=== PATIENT | female | born 1950 | race Caucasian/White ===

== ENCOUNTER 2020-08-28 10:22 | Emergency (ER) | payer OTHER, SELFPAY ==
--- NOTE | 2020-08-28 11:24 | ED.GENADULT ---
HPI - General Adult General Chief complaint: Upper Respiratory Infection Stated complaint: NOT FEELING WELL Time Seen by Provider: 08/28/20 11:25 Source: patient and RN notes reviewed Mode of arrival: ambulatory Limitations: no limitations History of Present Illness HPI narrative: 69-year-old female presents with complaints of upper respiratory infection symptoms, fever, sore throat, cough, intermittent dyspnea and headaches (not the worst of her life) for the 2 weeks. Recently completed antibiotics and Tylenol, last today at 08:00 without relief. History of Asthma. Dry cough without chest congestion. Rhinorrhea and nasal congestion. Exacerbating factors consist over exertion. No high fevers or sweats. No nausea, vomiting, and abdominal pain. Tolerating po intake well. Denies chest pain, coughing up blood, jaw pain, dental pain, facial pain, foreign body sensation, and rash. The patient reports she have not been diagnosed with COVID-19. The patient reports she received her COVID-19 vaccine on 08/13/2020 and illness increased. The patient reports she is not waiting for the results of a COVID-19 lab test. The patient reports she do not have weakness, myalgia, or fatigue. The patient reports she do not have any loss of smell or taste or diarrhea. Denies recent traveling. Denies concerns for COVID-19 or exposures been home with limited outdoor exposure except for essential household needs and return home. At this time, patient is not suspected of having COVID-19. Some parts of this dictation were generated by voice recognition software and may contain typographical and/or grammatical inaccuracies. Related Data Home Medications Medication Instructions Recorded Confirmed albuterol sulfate 2 puff INHALATION Q4H PRN 08/28/20 08/28/20 glipizide 10 mg PO DAILY 08/28/20 08/28/20 insulin glargine [Basaglar KwikPen 40 unit SUBCUT HS 08/28/20 08/28/20 U-100 Insulin] lurasidone [Latuda] 120 mg PO DAILY 08/28/20 08/28/20 simvastatin 20 mg PO DAILY 08/28/20 08/28/20 Allergies Allergy/AdvReac Type Severity Reaction Status Date / Time ampicillin Allergy Unknown Difficulty Verified 08/28/20 12:22 Breathing aspirin Allergy Unknown Difficulty Verified 08/28/20 12:22 Breathing codeine Allergy Unknown Difficulty Verified 08/28/20 12:22 Breathing Penicillins Allergy Unknown Difficulty Verified 08/28/20 12:22 Breathing Review of Systems Review of Systems: Narrative: CONSTITUTIONAL: Complains of tactile fever. Denies chills, sweats. EYES: Denies visual changes, redness, discharge. ENT: Complains of rhinorrhea, congestion, sore throat. Denies otalgia. CARDIOVASCULAR: Denies chest pain, palpitations, edema. RESPIRATORY: Denies wheezing. Complains of intermittent dyspnea, dry cough. GASTROINTESTINAL: Denies abdominal pain, nausea, vomiting, diarrhea. GENITOURINARY: Denies dysuria, hematuria, abnormal discharge. SKIN: Denies rash or itching. MUSCULOSKELETAL: Denies acute back pain, joint pain, myalgia. NEUROLOGIC: Denies numbness or focal weakness. PSYCHIATRIC: Denies anxiety or depression. Complains of intermittent WARNER. All systems reviewed & are unremarkable except as noted in HPI and below PMFSH Past Medical History Medical History (Updated 08/29/20 @ 00:00 by Carmen Wise) Arthritis Asthma Depression Diabetes Hypercholesteremia Kidney stones Surgical History Surgical History (Updated 09/01/20 @ 13:06 by ANNY Davis) History of cholecystectomy History of dilation and curettage History of knee surgery LT History of tonsillectomy History of tubal ligation Family History Family History Other Diabetes mellitus Family history of alcoholism Family history of arthritis Family history of cardiovascular disease Family history of gout Family history of mental disorder Social History Social History (Updated 09/01
[2020-08-28 11:28] VITALS: BP 136/78; PULSE 99; RESP 16; TEMP 36.4; O2SAT 99
== END 2020-08-28 12:05 | disposition home or self-care (01) ==
PROVIDERS: Emergency Provider Nurse Practitioner Family; PCP Family Medicine
DX: J02.9 Acute pharyngitis, unspecified (principal); Z20.822 Contact with and (suspected) exposure to COVID-19; M19.90 Unspecified osteoarthritis, unspecified site; F32.9 Major depressive disorder, single episode, unspecified; E11.9 Type 2 diabetes mellitus without complications; E78.00 Pure hypercholesterolemia, unspecified
CPT/HCPCS: 87081; 87426; 87804; 87880; 99213; C9803; G0463

== ENCOUNTER 2020-11-07 11:23 | Emergency (ER) | payer OTHER, SELFPAY ==
[2020-11-07 11:32] VITALS: BP 126/64; PULSE 107; RESP 16; TEMP 37; O2SAT 98
--- NOTE | 2020-11-07 12:06 | ED.GENADULT ---
HPI - General Adult General Chief complaint: Ear Stated complaint: Ear Pain Time Seen by Provider: 11/07/20 12:06 Source: patient and RN notes reviewed Mode of arrival: ambulatory Limitations: no limitations History of Present Illness HPI narrative: 70-year-old female presents with complaints of bilateral otalgia, upper respiratory infection symptoms, nasal congestion, and rhinorrhea for the past 14 days. Ramandeep reports decrease hearing, increase otalgia with opening mouth, and intermittent sore throat. OTC medications with some relief, last today 07:00. Denies drainage or tinnitus. Denies injury to ear. ?Rhinorrhea and nasal congestion. Denies coughing. ?No high fevers or chills. ?Denies nausea, vomiting, and dizziness. ?The patient reports she has not been diagnosed with COVID-19. The patient reports she is not waiting for the results of a COVID-19 lab test. The patient reports she does not have chills, weakness, or fatigue. ?The patient reports she does not have a new or worsening cough or shortness of breath. ?Denies chest pain. ?The patient reports she does not have any rhinorrhea, congestion, sore throat, loss of taste or smell, nausea, vomiting, abdominal pain, and diarrhea. ?Tolerating po intake well. ?Denies recent traveling. Denies concerns for COVID-19. ?At this time, the patient is not suspected of having COVID-19. Some parts of this dictation were generated by voice recognition software and may contain typographical and/or grammatical inaccuracies. Related Data Home Medications Medication Instructions Recorded Confirmed simvastatin 20 mg PO DAILY 08/28/20 11/07/20 albuterol 2 mcg INHALATION QID 11/07/20 11/07/20 glipizide [Glucotrol XL] 10 mg PO DAILY 11/07/20 11/07/20 insulin glargine [Basaglar KwikPen 40 unit SUBCUT DAILY 11/07/20 11/07/20 U-100 Insulin] lurasidone [Latuda] 120 mg PO DAILY 11/07/20 11/07/20 Allergies Allergy/AdvReac Type Severity Reaction Status Date / Time ampicillin Allergy Unknown Difficulty Verified 11/07/20 11:39 Breathing aspirin Allergy Unknown Difficulty Verified 11/07/20 11:39 Breathing codeine Allergy Unknown Difficulty Verified 11/07/20 11:39 Breathing Penicillins Allergy Unknown Difficulty Verified 11/07/20 11:39 Breathing Review of Systems Review of Systems: Narrative: CONSTITUTIONAL: Denies fever, chills, sweats. EYES: Denies visual changes, redness, discharge. ENT: Denies ear drainage. Complains of sore throat, bilateral otalgia, decrease hearing, facial pressure, rhinorrhea, congestion. CARDIOVASCULAR: Denies chest pain, palpitations, edema. RESPIRATORY: Denies dyspnea, wheezing, cough. GASTROINTESTINAL: Denies abdominal pain, nausea, vomiting, diarrhea. SKIN: Denies rash or itching. MUSCULOSKELETAL: Denies acute back pain, joint pain, or myalgia. NEUROLOGIC: Denies numbness or focal weakness. PSYCHIATRIC: Denies anxiety or depression. All systems reviewed & are unremarkable except as noted in HPI and below. [facility] Past Medical History Medical History Arthritis Asthma Depression Diabetes Hypercholesteremia Kidney stones Surgical History Surgical History History of cholecystectomy History of dilation and curettage History of knee surgery LT History of tonsillectomy History of tubal ligation Family History Family History Other Diabetes mellitus Family history of alcoholism Family history of arthritis Family history of cardiovascular disease Family history of gout Family history of mental disorder Social History Social History Smoking status: Never smoker Tobacco type: cigarettes Second hand tobacco smoke exposure: No Alcohol intake: never Substance use: never Substance use type: does not
== END 2020-11-07 12:40 | disposition home or self-care (01) ==
PROVIDERS: Emergency Provider Nurse Practitioner Family; PCP Family Medicine
DX: H66.002 Acute suppurative otitis media without spontaneous rupture of ear drum, left ear (principal); H61.22 Impacted cerumen, left ear; J01.10 Acute frontal sinusitis, unspecified; M19.90 Unspecified osteoarthritis, unspecified site; E11.9 Type 2 diabetes mellitus without complications; E78.00 Pure hypercholesterolemia, unspecified; F32.9 Major depressive disorder, single episode, unspecified
CPT/HCPCS: 69209; 99213; A9270; G0463

== ENCOUNTER 2021-04-11 09:55 | Outpatient (CLI) | payer OTHER, SELFPAY ==
--- NOTE | ~2021-04-11 | MM_ITS ---
EXAMINATION: MM screening manan BI w brett HISTORY: Screening TECHNIQUE: Craniocaudal and mediolateral oblique 3-D tomosynthesis images were obtained and synthetic 2-D images were generated. CAD analysis was submitted and interpreted. COMPARISON: Comparison to multiple prior studies sequentially, with oldest reviewed study dated 07/17. BREAST PARENCHYMAL COMPOSITION: There are scattered areas of fibroglandular density. FINDINGS: There is no evidence of suspicious mass, calcification, or architectural distortion to sugg est malignancy in either breast. There has been no suspicious interval change. IMPRESSION: 1. No mammographic evidence of malignancy. 2. Recommend routine screening mammography in one year. BI-RADS Category 1: Negative Reviewed, dictated and finalized at location A.
== END 2021-04-11 09:56 | disposition home or self-care (01) ==
LOC: ANHIMG 09:58
PROVIDERS: PCP Family Medicine; Visit Provider Family Medicine
DX: Z12.31 Encounter for screening mammogram for malignant neoplasm of breast (principal)
CPT/HCPCS: 77063; 77067

== ENCOUNTER 2022-01-06 08:20 | Emergency (ER) | payer OTHER, SELFPAY ==
[2022-01-06] VITALS (13 sets, daily range): BP systolic 101–158; BP diastolic 55–79; PULSE 66–85; RESP 15–20; TEMP 36.7–37.2; O2SAT 94–100
--- NOTE | ~2022-01-06 | XR_ITS ---
EXAMINATION: XR lumbar spine 2-3V DATE: 01/06/2022 12:06 INDICATION: Fall 4 months prior TECHNIQUE: Anteroposterior and lateral views of the lumbar spine, and cone-down lateral view of the l umbosacral junction were obtained. COMPARISON: 06/16/2009 FINDINGS: Transitional thoracolumbar and lumbosacral segments with hypoplastic riblets at T12 and with sacraliz ation of L5. Sacrum and bilateral sacroiliac joints are unremarkable. Normal bowel gas pattern. 3 mm anterolisthesis L4 on L5. Vertebral body heights are normal. Interval progression of now moderate dis c height loss at L4-L5. Mild disc height loss at L3-L4. Moderate to severe lower lumbar facet osteoar thritis. IMPRESSION: 1. Interval progression of moderate lower lumbar spondylosis. Reviewed, dictated and finalized at location A.
--- NOTE | ~2022-01-06 | XR_ITS ---
EXAMINATION: XR thoracic spine 3V DATE: 01/06/2022 12:05 INDICATION: Fall 4 months prior TECHNIQUE: One AP, lateral and lateral swimmer's views of the thoracic spine were obtained. COMPARISON: 09/12/2003 FINDINGS: Moderate thoracic kyphosis which has progressed since the prior study. Chronic mild anterior wedging at a couple mid thoracic vertebral bodies, likely T7 and T8. Multilevel mild to moderate midthoracic prominent disc height loss. There are bridging osteophytes throughout much of the thoracic spine cons istent with diffuse idiopathic skeletal hyperostosis (DISH). No acute fracture identified. Lungs are clear with no focal airspace opacities, pulmonary edema, pleural effusion or pneumothorax. Prominent costochondral calcifications. Mediastinal silhouette is normal accounting for AP technique. IMPRESSION: 1. Moderate thoracic kyphosis with chronic mild anterior wedging at T7 and T8. No acute osseous abnor mality. 2. Moderate thoracic spondylosis and multiple bridging osteophytes throughout much of the thoracic sp ine consistent with diffuse idiopathic skeletal hyperostosis (DISH) Reviewed, dictated and finalized at location A. IMPRESSION: 1. Moderate thoracic kyphosis with chronic mild anterior wedging at T7 and T8. No acute osseous abnormality. 2. Moderate thoracic spondylosis and multiple bridging osteophytes throughout m uch of the thoracic spine consistent with diffuse idiopathic skeletal hyperosto sis (DISH)
--- NOTE | ~2022-01-06 | XR_ITS ---
EXAMINATION: XR hip RT 2V w AP pelvis DATE: 01/06/2022 12:06 INDICATION: Fall. TECHNIQUE: An anteroposterior view of pelvis and 2 views of right hip were obtained. COMPARISON: None. FINDINGS: Bone alignment is normal. No fracture. There is mild osteoarthritis of the hips. IMPRESSION: 1. Mild osteoarthritis of the hips. Reviewed, dictated and finalized at location A.
--- NOTE | 2022-01-06 09:32 | PC.NURSE ---
Pt resting on stretcher. Awaiting orders or disposition.
--- NOTE | 2022-01-06 10:17 | ED.FALL ---
HPI - Fall General Chief Complaint: Fall Stated Complaint: Fall Time Seen by Provider: 01/06/22 08:37 Source: patient Mode of arrival: ambulatory Limitations: no limitations History of Present Illness HPI Narrative: 71 years old white female came to the emergency room by private car complaining of severe pain at the right hip and the lower back started 4 months ago after falling inside her bathtub. Patient did not see anybody at that time, did not see any medical providers over the last 4 months, the pain is getting worse. She denies patient denies bowel dysfunction, bladder dysfunction, altered sensation, focal weakness, or saddle numbness,. History of diabetes, hypertension, hyperlipidemia, depression, does not smoke or drink or uses drugs last time was seen by her family physician over 4 months ago. Patient brought to the emergency room by one of her friends Related Data Home Medications Medication Instructions Recorded Confirmed simvastatin 20 mg tablet 20 mg PO DAILY 08/28/20 11/07/20 albuterol 90 mcg/actuation aerosol 2 mcg inhalation QID 11/07/20 11/07/20 inhaler glipizide 10 mg tablet, extended 10 mg PO DAILY 11/07/20 11/07/20 release 24 hr (Glucotrol XL) insulin glargine 100 unit/mL (3 40 unit subcut DAILY 11/07/20 11/07/20 mL) subcutaneous pen (Basaglar KwikPen U-100 Insulin) lurasidone 120 mg tablet (Latuda) 120 mg PO DAILY 11/07/20 11/07/20 Allergies Allergy/AdvReac Type Severity Reaction Status Date / Time ampicillin Allergy Unknown Difficulty Verified 01/06/22 08:30 Breathing aspirin Allergy Unknown Difficulty Verified 01/06/22 08:30 Breathing codeine Allergy Unknown Difficulty Verified 01/06/22 08:30 Breathing Penicillins Allergy Unknown Difficulty Verified 01/06/22 08:30 Breathing Review of Systems Review of Systems: All systems reviewed & are unremarkable except as noted in HPI and below PMFSH Past Medical History Medical History Arthritis Asthma Depression Diabetes Hypercholesteremia Kidney stones Surgical History Surgical History History of cholecystectomy History of dilation and curettage History of knee surgery LT History of tonsillectomy History of tubal ligation Family History Family History Other Diabetes mellitus Family history of alcoholism Family history of arthritis Family history of cardiovascular disease Family history of gout Family history of mental disorder Social History Social History Smoking status: Never smoker Tobacco type: cigarettes Second hand tobacco smoke exposure: No Alcohol intake: never Substance use: never Substance use type: does not use Additional occupation/education comments: disable Gender identity (if verbalized by the patient): Female Sexual Orientation (if Verbalized by the Patient): Straight or Heterosexual Exam Narrative: General appearance: Well-developed, well-nourished Skin: Normal color Head: Normocephalic, nontraumatic Eyes: Clear conjunctiva ENT: Oropharynx normal, ears normal, nose normal Neck: Supple, nontender Chest and respiratory: Airway patent, no respiratory distress, no accessory muscle use Heart: Regular rate/rhythm Abdomen: Soft, nontender, no organomegaly, quiet bowel sounds Vascular: Normal peripheral pulses, normal capillary refill. Musculoskeletal: Severe pain midline lumbar area, limited range of motion of the right hip. No bruises, no swelling, no deformity Neurologic: Alert and oriented ?3, ICE SKATING INSTRUCTOR is normal as tested, no gross motor deficit
[2022-01-06] MEDS: HYDROmorphone HCL INJ (*CRX) 1 MG/ML SYR 0.5 MG IV PUSH (10:30)
[2022-01-06] MEDS: ONDANSETRON INJ 4 MG/2 ML VIAL IV PUSH (10:31)
== END 2022-01-06 13:36 | disposition home or self-care (01) ==
PROVIDERS: Emergency Provider Emergency Medicine; PCP Family Medicine
DX: M16.0 Bilateral primary osteoarthritis of hip (principal); M54.50 Low back pain, unspecified; G89.29 Other chronic pain; J45.909 Unspecified asthma, uncomplicated; E11.9 Type 2 diabetes mellitus without complications; E78.00 Pure hypercholesterolemia, unspecified; M19.90 Unspecified osteoarthritis, unspecified site; F32.A Depression, unspecified; Z87.442 Personal history of urinary calculi; Z79.4 Long term (current) use of insulin; M47.814 Spondylosis without myelopathy or radiculopathy, thoracic region; M47.816 Spondylosis without myelopathy or radiculopathy, lumbar region
CPT/HCPCS: 72072; 72100; 73502; 96374; 96375; 99284; J1170; J2405

== ENCOUNTER 2022-06-15 19:30 | Emergency (ER) | payer OTHER, SELFPAY ==
[2022-06-15] VITALS (26 sets, daily range): BP systolic 98–147; BP diastolic 32–86; PULSE 65–98; RESP 13–33; TEMP 37.2; O2SAT 96–100
--- NOTE | ~2022-06-15 | XR_ITS ---
EXAMINATION: XR chest 2V Exam Date/Time: 06/15/2022 20:20 [employer] [employer] HISTORY: cp MIDSTERNAL, SOB, HX ASTHMA, COUGH, HX DIABETES Comparison: 07/01/2016. RESULT: Lines, tubes, and devices: None. Lungs and pleura: Senescent and possible mild emphysematous change, otherwise clear. Cardiomediastinal silhouette: Stable. Other: No acute osseous or upper abdominal finding. IMPRESSION: No acute cardiopulmonary process. Reviewed, dictated and finalized at location K. [facility] [employer]
--- NOTE | 2022-06-15 19:33 | ECG_ITS ---
Measurements Intervals [place] Rate: 72 P: 30 MS: 118 QRS: 50 QRSD: 129 T: 52 QT: 414 QTc: 456 Interpretive Statements SINUS RHYTHM WITH SHORT MS INTERVAL LEFT BUNDLE BRANCH BLOCK BASELINE WANDER- V3 ABNORMAL ECG NO PREVIOUS ECG AVAILABLE FOR COMPARISON Electronically Signed On 06-15-2022 20:17:02 [employer]OR[employer]ED [employer] by Phoenix Vivas D.O.
[2022-06-15 19:47] LABS: Basophils Absolute Auto 0.1 K/mm3 (0.0-0.1); Basophils Percent Auto 0.5 % (0.2-1.2); Eosinophils Absolute Auto 0.4 K/mm3 (0-0.3); Eosinophils Percent Auto 3.8 % (0-4.4); Hematocrit 41.8 % (37.0-47.0); Hemoglobin 13.9 g/dL (12.0-15.0); Immature Granulocyte Absolute 0.03 K/mm3 (0.00-0.031); Immature Granulocyte Percent A 0.3 % (0-0.5); Lymphocytes Absolute Auto 3.29 K/mm3 (0.9-3.2); Lymphocytes Percent Auto 32.2 % (18.3-44.2); Mean Corpuscular HGB Conc 33.3 g/dl (32-36); Mean Corpuscular Hemoglobin 33.7 pg (26-34); Mean Corpuscular Volume 101.5 fl (80-100); Mean Platelet Volume 9.1 fl (7.4-10.4); Monocytes Absolute Auto 0.8 K/mm3 (0.1-0.6); Monocytes Percent Auto 7.3 % (2.6-8.5); Neutrophils Absolute Auto 5.7 K/mm3 (1.3-6.7); Neutrophils Percent Auto 55.9 % (45.5-73.1); Platelet Count Result 273 k/mm3 (150-375); Red Blood Count 4.12 M/mm3 (4.2-5.4); Red Cell Distribution Width 13.6 % (11.5-14.5); White Blood Count 10.2 K/mm3 (4.5-10.0)
[2022-06-15 19:58] LABS: Alanine Aminotransferase 24 U/L (6-35); Albumin Level 4.3 g/dL (3.5-5.1); Alkaline Phosphatase 124 U/L (38-126); Anion Gap 6 mmol/L (8-16); Aspartate Amino Transferase 29 U/L (14-36); Bilirubin,Total 0.3 mg/dL (0.2-1.3); Blood Urea Nitrogen 23 mg/dL (7-17); Calcium 8.9 mg/dL (8.4-10.2); Carbon Dioxide 30 mmol/L (22-30); Chloride 101 mmol/L (98-107); Estimated Glomerular Filt Rate > 60; Glucose 170 mg/dL (65-110); INR 0.9; Lipase 46 U/L (23-300); Partial Thromboplastin Time 26.6 SECONDS (22.3-36.8); Potassium 4.3 mmol/L (3.4-5.0); Prothrombin Time 12.1 Seconds (11.1-14.7); Sodium 137 mmol/L (137-145)
[2022-06-15 20:09] LABS: Troponin I < 0.012 ng/mL (0.000-0.034)
[2022-06-15 20:22] LABS: Influenza A QL RT-PCR Negative (Negative); Influenza B QL RT-PCR Negative (Negative); RSV RNA, RT-PCR Negative (Negative); SARS-CoV-2 RNA PCR Negative
--- NOTE | 2022-06-15 20:51 | ED.URI ---
HPI - URI/Sore Throat General Chief Complaint: Chest Pain Stated Complaint: shortness of breath Time Seen by Provider: 06/15/22 20:39 History of Present Illness HPI Narrative: This is a 71-year-old female with past medical history of asthma and diabetes, who presents to the emergency department complaining of upper respiratory congestion, sore throat, wheezing and sore like chest pain. She states her symptoms began yesterday with a mild asthma exacerbation that improved with albuterol. At the time she had some coughing associated with some sore like chest pain. Today she noted nasal congestion, sore throat and mild swelling at the neck with worsening cough and similar chest soreness (rated 4/10 at maximum) without radiation. Related Data Home Medications Medication Instructions Recorded Confirmed simvastatin 20 mg tablet 20 mg PO DAILY 08/28/20 11/07/20 albuterol 90 mcg/actuation aerosol 2 mcg inhalation QID 11/07/20 11/07/20 inhaler glipizide 10 mg tablet, extended 10 mg PO DAILY 11/07/20 11/07/20 release 24 hr (Glucotrol XL) insulin glargine 100 unit/mL (3 40 unit subcut DAILY 11/07/20 11/07/20 mL) subcutaneous pen (Basaglar KwikPen U-100 Insulin) lurasidone 120 mg tablet (Latuda) 120 mg PO DAILY 11/07/20 11/07/20 Allergies Allergy/AdvReac Type Severity Reaction Status Date / Time ampicillin Allergy Unknown Difficulty Verified 01/06/22 08:30 Breathing aspirin Allergy Unknown Difficulty Verified 01/06/22 08:30 Breathing codeine Allergy Unknown Difficulty Verified 01/06/22 08:30 Breathing Penicillins Allergy Unknown Difficulty Verified 01/06/22 08:30 Breathing Review of Systems Review of Systems: CONSTITUTIONAL: Denies fever, chills, or sweats. EYES: Denies visual changes, redness, or discharge. ENT: rhinorrhea, congestion, sore throat, Denies otalgia. CARDIOVASCULAR: Chest soreness Denies palpitations, or edema. RESPIRATORY: cough productive of some mucus denies dyspnea. GASTROINTESTINAL: Denies abdominal pain, nausea, vomiting, or diarrhea. GENITOURINARY: Denies dysuria or hematuria. SKIN: Denies rash or itching. MUSCULOSKELETAL: Denies back pain, joint pain, or myalgia. NEUROLOGIC: Denies headache, numbness, dizziness, or weakness. PSYCHIATRIC: Denies anxiety or depression. [facility] Past Medical History Medical History Arthritis Asthma Depression Diabetes Hypercholesteremia Kidney stones Surgical History Surgical History History of cholecystectomy History of dilation and curettage History of knee surgery LT History of tonsillectomy History of tubal ligation Family History Family History Other Diabetes mellitus Family history of alcoholism Family history of arthritis Family history of cardiovascular disease Family history of gout Family history of mental disorder Social History Social History Smoking status: Never smoker Tobacco type: cigarettes Second hand tobacco smoke exposure: No Alcohol intake: never Substance use: never Substance use type: does not use Additional occupation/education comments: disable Gender identity (if verbalized by the patient): Female Sexual Orientation (if Verbalized by the Patient): Straight or Heterosexual Exam Narrative: GENERAL: Well-developed, well-nourished, and in no acute distress. HEAD: Normocephalic, atraumatic. EYES: PERRLA and EOMI. ENT: Nares clear, no rhinorrhea or epistaxis. Mucous membranes moist. Mild pharyngeal erythema without tonsillar hypertrophy exudate or other lesions. NECK: Supple. No adenopathy or masses. No carotid bruits or JVD CHEST: Tender to palpation over the anterior chest, clear to auscultation. No respiratory distress. No wheezes rales or rhonchi HEA
[2022-06-15] MEDS: ALBUTEROL SULFATE NEB 2.5 MG/3 ML INH 5 MG INHALATION (21:20)
[2022-06-15] MEDS: IPRATROPIUM BR 0.02% INH SOLN 0.5 MG/2.5 ML VIAL INHALATION (21:20)
[2022-06-15] MEDS: ACETAMINOPHEN 500 MG TABLET 1000 MG PO (21:47)
[2022-06-15 22:59] LABS: Troponin I < 0.012 ng/mL (0.000-0.034)
== END 2022-06-15 23:30 | disposition home or self-care (01) ==
PROVIDERS: Emergency Provider Preventive Medicine Aerospace Medicine; PCP Family Medicine
DX: J45.901 Unspecified asthma with (acute) exacerbation (principal); Z20.822 Contact with and (suspected) exposure to COVID-19; E11.9 Type 2 diabetes mellitus without complications; E78.00 Pure hypercholesterolemia, unspecified; M19.90 Unspecified osteoarthritis, unspecified site; Z87.442 Personal history of urinary calculi; Z79.84 Long term (current) use of oral hypoglycemic drugs; Z79.4 Long term (current) use of insulin
CPT/HCPCS: 36415; 71046; 80053; 83690; 84484; 85025; 85610; 85730; 87637; 93005; 94640; 99284; A9270

== ENCOUNTER 2022-08-03 18:19 | Emergency (ER) | payer OTHER, SELFPAY ==
--- NOTE | ~2022-08-03 | CT_ITS ---
EXAMINATION: CT abdomen pelvis wo con DATE: 08/03/2022 21:48 INDICATION: abdominal bloating, kidney stones TECHNIQUE: Computed tomography (CT) of the abdomen and pelvis was performed without intravenous contr ast. Automated exposure control and iterative reconstruction technique were employed. The dose-length product was 735.71 mGy-cm. COMPARISON: None. FINDINGS: Moderate motion artifact. Lower thorax: Cardiomegaly. Mitral calcification. Liver: Normal. Biliary/Gallbladder: Gallbladder is absent. No bile duct dilation. Pancreas: No mass or duct dilation. Spleen: Normal. Adrenals:No mass. Kidneys: No mass, stone, or hydronephrosis. GI tract: No small or large bowel dilation. Appendix not visualized. Diverticulosis without diverticu litis. Mesentery/Peritoneum: No ascites, mass, or free air. Retroperitoneum: No mass. Mild atherosclerotic abdominal aortic and/or arterial calcifications. Pelvis: Pelvic organs are within normal limits. Soft Tissues: Soft tissues and body wall unremarkable. Bones: No acute osseous finding. IMPRESSION: Motion limited examination, within that constraint no definite acute abdominopelvic process detected. Reviewed, dictated and finalized at location K. DCAST TRAFFIC COORDINATOR IMPRESSION: Motion limited examination, within that constraint no definite acute abdominope lvic process detected.
[2022-08-03 18:40] VITALS: BP 157/88; PULSE 110; RESP 18; TEMP 36.6; O2SAT 97
[2022-08-03 19:22] LABS: Appearance Urine Clear (Clear); Bacteria Urine None Seen /hpf; Bilirubin Urine Negative (Negative); Blood Urine Negative (Negative); Color Urine Yellow (Yellow); Glucose Urine UA 3+ mg/dL (Negative); Ketones Urine Negative (Negative); Leukocyte Esterase Ur 3+ LEU/UL (Negative); Need Manual Microscopic Reviewed; Nitrate Urine Negative (Negative); Non Pathogenic Casts 0-2; Protein Urine Negative (Negative); Specific Grav Ur 1.015 (1.001-1.035); Squamous Epithelial Cell Urine Occasional /hpf (Few); Urobilinogen Urine 0.2 mg/dL (<2.0); WBC Urine 21-50 /hpf
[2022-08-03 19:24] LABS: Add Urine Microscopic? YES
[2022-08-03 21:17] LABS: Basophils Absolute Auto 0.1 K/mm3 (0.0-0.1); Basophils Percent Auto 0.5 % (0.2-1.2); Eosinophils Absolute Auto 0.4 K/mm3 (0-0.3); Eosinophils Percent Auto 3.8 % (0-4.4); Hematocrit 41.7 % (37.0-47.0); Hemoglobin 14.3 g/dL (12.0-15.0); Immature Granulocyte Absolute 0.02 K/mm3 (0.00-0.031); Immature Granulocyte Percent A 0.2 % (0-0.5); Lymphocytes Absolute Auto 3.08 K/mm3 (0.9-3.2); Mean Corpuscular HGB Conc 34.3 g/dl (32-36); Mean Corpuscular Volume 99.3 fl (80-100); Mean Platelet Volume 9.1 fl (7.4-10.4); Monocytes Absolute Auto 0.9 K/mm3 (0.1-0.6); Monocytes Percent Auto 9.4 % (2.6-8.5); Neutrophils Percent Auto 53.1 % (45.5-73.1); Platelet Count Result 302 k/mm3 (150-375); Red Cell Distribution Width 13.8 % (11.5-14.5); White Blood Count 9.3 K/mm3 (4.5-10.0)
--- NOTE | 2022-08-03 21:32 | ED.GENADULT ---
HPI - General Adult General Chief complaint: Urogenital-Female Stated complaint: pain with urination Time Seen by Provider: 08/03/22 20:21 Source: patient and RN notes reviewed Mode of arrival: ambulatory Limitations: no limitations History of Present Illness HPI narrative: This is a 71 year old female with history of DM who presents for evaluation of multiple complaints. She reports she got a yeast infection after taking antibiotics for upper respiratory tract infection. She has been using nystatic cream and she was prescribed dose of diflucan 5 days ago. She reports vaginal irritations and burning with urinary. She also reports abdominal bloating. Her last BM was today. She denies nausea or vomiting. She also complains of chronic sinus congestion for 2 months, and reports her ears feel clogged. She also reports swollen glands for 2 months. Related Data Home Medications Medication Instructions Recorded Confirmed simvastatin 20 mg tablet 20 mg PO DAILY 08/28/20 11/07/20 albuterol 90 mcg/actuation aerosol 2 mcg inhalation QID 11/07/20 11/07/20 inhaler glipizide 10 mg tablet, extended 10 mg PO DAILY 11/07/20 11/07/20 release 24 hr (Glucotrol XL) insulin glargine 100 unit/mL (3 40 unit subcut DAILY 11/07/20 11/07/20 mL) subcutaneous pen (Basaglar KwikPen U-100 Insulin) lurasidone 120 mg tablet (Latuda) 120 mg PO DAILY 11/07/20 11/07/20 Allergies Allergy/AdvReac Type Severity Reaction Status Date / Time ampicillin Allergy Unknown Difficulty Verified 01/06/22 08:30 Breathing aspirin Allergy Unknown Difficulty Verified 01/06/22 08:30 Breathing codeine Allergy Unknown Difficulty Verified 01/06/22 08:30 Breathing Penicillins Allergy Unknown Difficulty Verified 01/06/22 08:30 Breathing Review of Systems Constitutional: Constitutional: Denies weakness ENT: Reports nasal congestion Cardiovascular: Cardiovascular: Denies syncope, Denies rapid heart rate, Denies irregular heart rhythm, Denies leg edema and Denies dyspnea Respiratory: Respiratory: Denies chest congestion, Denies hemoptysis, Denies excessive phlegm production and Denies dyspnea Gastrointestinal: Gastrointestinal: Reports abdominal pain, Reports bloating, Denies hematochezia, Denies diarrhea and Denies vomiting Genitourinary: Genitourinary: Denies hematuria, Reports genital lesions and Reports dysuria Musculoskeletal: Musculoskeletal: Denies joint swelling, Denies loss of height and Denies muscle weakness Neurologic: Denies syncope, Denies focal weakness and Denies weakness PMFSH Past Medical History Medical History Arthritis Asthma Depression Diabetes Hypercholesteremia Kidney stones Surgical History Surgical History History of cholecystectomy History of dilation and curettage History of knee surgery LT History of tonsillectomy History of tubal ligation Family History Family History Other Diabetes mellitus Family history of alcoholism Family history of arthritis Family history of cardiovascular disease Family history of gout Family history of mental disorder Social History Social History Smoking status: Never smoker Tobacco type: cigarettes Second hand tobacco smoke exposure: No Alcohol intake: never Substance use: never Substance use type: does not use Living arrangements: alone Occupation/Education: other Additional occupation/education comments: disable Gender identity (if verbalized by the patient): Female Sexual Orientation (if Verbalized by the Patient): Straight or Heterosexual Exam Const: General: no acute distress and alert Nutritional Appearance: well nourished Orientation/consciousness: patient oriented x3 HENMT: Head: normal to inspection
[2022-08-03 21:53] LABS: Alanine Aminotransferase 24 U/L (6-35); Albumin Level 4.4 g/dL (3.5-5.1); Alkaline Phosphatase 197 U/L (38-126); Anion Gap 10 mmol/L (8-16); Aspartate Amino Transferase 31 U/L (14-36); Bilirubin,Total 0.4 mg/dL (0.2-1.3); Blood Urea Nitrogen 15 mg/dL (7-17); Calcium 8.6 mg/dL (8.4-10.2); Carbon Dioxide 28 mmol/L (22-30); Chloride 99 mmol/L (98-107); Estimated CRCL calculation 65 ml/min; Estimated Glomerular Filt Rate > 60; Glucose 307 mg/dL (65-110); Lipase 62 U/L (23-300); Potassium 4.9 mmol/L (3.4-5.0); Sodium 137 mmol/L (137-145)
[2022-08-04 00:11] VITALS: BP 132/87; PULSE 87; RESP 19; O2SAT 100
== END 2022-08-04 00:12 | disposition home or self-care (01) ==
PROVIDERS: Emergency Medicine; Emergency Provider General Practice; PCP Family Medicine
DX: N39.0 Urinary tract infection, site not specified (principal); H66.92 Otitis media, unspecified, left ear; R14.0 Abdominal distension (gaseous); M19.90 Unspecified osteoarthritis, unspecified site; J45.909 Unspecified asthma, uncomplicated; F32.9 Major depressive disorder, single episode, unspecified; E11.9 Type 2 diabetes mellitus without complications; E78.5 Hyperlipidemia, unspecified; Z87.442 Personal history of urinary calculi; Z79.4 Long term (current) use of insulin
CPT/HCPCS: 36415; 74176; 80053; 81001; 83690; 85025; 87086; 87088; 99284

== ENCOUNTER 2023-03-13 16:35 | Inpatient (IN) | payer OTHER, SELFPAY ==
[2023-03-13] VITALS (17 sets, daily range): BP systolic 134–151; BP diastolic 53–80; PULSE 79–95; RESP 14–22; TEMP 36.4–37.1; O2SAT 98–100; BMI 33.6
--- NOTE | ~2023-03-13 | US_ITS ---
EXAMINATION: US venous doppler [facility] DATE: 03/13/2023 20:47 INDICATION: elevated dimer, BLE, dyspnea . TECHNIQUE: Grayscale images without and with compression and Doppler images of the bilateral lower ex tremity veins were obtained. COMPARISON: None FINDINGS: The right common femoral vein, profunda (deep) femoral vein, femoral vein, popliteal vein, peroneal v ein, posterior tibial veins, gastrocnemius vein, and greater saphenous vein are patent. The left common femoral vein, profunda (deep) femoral vein, femoral vein, popliteal vein, peroneal v ein, posterior tibial veins, gastrocnemius vein, and greater saphenous vein are patent. IMPRESSION: Patent bilateral lower extremity veins. No evidence of deep venous thrombosis. Reviewed, dictated and finalized at location K.
--- NOTE | ~2023-03-13 | XR_ITS ---
EXAM: XR foot LT min 3V DATE: 03/13/2023 18:27 HISTORY: concern osteomylitis over head 1st metatarsal . COMPARISON: None available. FINDINGS: Decreased mineralization. No fracture or dislocation. No lytic or blastic lesion. Scattere d mild degenerative change. Moderate degenerative change at the first MTP joint. No erosion or perios teal change. Medial soft tissue defect over the first MTP. Forefoot soft tissue swelling. IMPRESSION: No radiographic evidence of osteomyelitis. Reviewed, dictated and finalized at location K.
--- NOTE | ~2023-03-13 | CT_ITS ---
EXAMINATION: CTA chest PE protocol DATE: 03/13/2023 19:24 INDICATION: elevated dimer, BLE, dyspnea TECHNIQUE: Computed tomography angiography (CTA) of the chest was performed with 100 mL Omnipaque-350 intravenous contrast timed to evaluate the pulmonary arteries. Coronal maximum intensity projection 3D-reconstructions were created by the technologist. The dose-length product (DLP) was 637.13 mGy-cm. Automated exposure control and iterative reconstruction technique were employed. COMPARISON: X-ray chest, same date. FINDINGS: Lung parenchyma and airways: Mild scattered groundglass opacity in a somewhat mosaic distribution. Se ptal thickening. Pleura: Unremarkable. Thoracic inlet, axillae and chest wall: Unremarkable. Thoracic aorta: Mild arch calcification. Mediastinum: Normal. Heart and pericardium: Mild cardiomegaly. No pericardial effusion. Coronary artery calcifications: Absent. Upper abdomen: No significant finding. Bones: No acute osseous finding. Severe thoracic kyphosis. Pulmonary arteries: Study quality: Adequate. No pulmonary emboli detected. IMPRESSION: No CT evidence of acute pulmonary embolus. Mild pulmonary edema. Reviewed, dictated and finalized at location K.
--- NOTE | ~2023-03-13 | XR_ITS ---
EXAMINATION: XR chest 1V portable Exam Date/Time: 03/13/2023 18:20 CDT HISTORY: chest pain, cough Comparison: 06/15/2022. RESULT: Lines, tubes, and devices: None. Lungs and pleura: Mild diffuse reticular opacities. Senescent changes. Cardiomediastinal silhouette: Stable. Other: No acute osseous or upper abdominal finding. IMPRESSION: Mild interstitial edema. Reviewed, dictated and finalized at location K. IMPRESSION: Mild interstitial edema.
--- NOTE | 2023-03-13 17:42 | ECG_ITS ---
Measurements Intervals [place] Rate: 94 P: 48 ND: 118 QRS: 41 QRSD: 134 T: -13 QT: 378 QTc: 473 Interpretive Statements SINUS RHYTHM WITH SHORT ND INTERVAL LEFT BUNDLE-BRANCH BLOCK ABNORMAL ECG COMPARED TO ECG 06/15/2022 19:38:19 INTRAVENTRICULAR CONDUCTION DELAY NOW PRESENT Electronically Signed On 03-14-2023 8:49:40 CDT by Asa Nicole M.D.
--- NOTE | 2023-03-13 17:44 | ED.URI ---
HPI - URI/Sore Throat General Chief Complaint: Upper Respiratory Infection <Jackie Brar PA-C - Last Filed: 03/13/23 20:44> Stated Complaint: uri <Jackie Brar PA-C - Last Filed: 03/13/23 20:44> Time Seen by Provider: 03/13/23 16:48 <Jackie Brar PA-C - Last Filed: 03/13/23 20:44> History of Present Illness HPI Narrative: 72-year-old female with a history of asthma, insulin-dependent diabetes and hyperlipidemia reports for evaluation for cough, nasal congestion, left ear congestion, chest pain, shortness of breath and a sore throat for 1 week. Patient reports the chest pain is throughout her anterior chest wall and worse with inspiration. She denies exertional symptoms, radiation of pain, palpitations or syncope. No aggravating or alleviating factors. She is reporting dyspnea with associated exertional symptoms and orthopnea. She states she has been using her albuterol inhaler at home without relief. On exam, patient also found to have BLE edema, worse on the left with erythema with an infected ulceration overlying the head of the left first metatarsal. Patient states this has been there for approximately 1 to 2 weeks. She is also complaining of urinary frequency. She denies fever, nausea or vomiting, abdominal pain, dysuria or hematuria. Patient does report recent sick contacts. <Jackie Brar PA-C - Last Filed: 03/13/23 20:44> Related Data Home Medications: Home Medications Medication Instructions Recorded Confirmed simvastatin 20 mg tablet 20 mg PO HS 08/28/20 03/13/23 albuterol 90 mcg/actuation aerosol 2 mcg inhalation QID 11/07/20 03/13/23 inhaler glipizide 10 mg tablet, extended 20 mg PO DAILY 11/07/20 03/13/23 release 24 hr (Glucotrol XL) insulin glargine 100 unit/mL (3 60 unit subcut HS 11/07/20 03/13/23 mL) subcutaneous pen (Basaglar KwikPen U-100 Insulin) lurasidone 120 mg tablet (Latuda) 120 mg PO HS 11/07/20 03/13/23 fluticasone propionate 50 1 spray intranasal BID PRN 03/13/23 03/13/23 mcg/actuation nasal Congestion spray,suspension (Allergy Relief (fluticasone)) irbesartan 300 mg tablet 300 mg PO HS 03/13/23 03/13/23 sertraline 25 mg tablet 25 mg PO HS 03/13/23 03/13/23 <JOHN Castillo Last Filed: 03/13/23 20:44> Allergies/Adverse Reactions: Allergies Allergy/AdvReac Type Severity Reaction Status Date / Time ampicillin Allergy Unknown Difficulty Verified 03/13/23 21:47 Breathing aspirin Allergy Unknown Difficulty Verified 03/13/23 21:47 Breathing codeine Allergy Unknown Difficulty Verified 03/13/23 21:47 Breathing Penicillins Allergy Unknown Difficulty Verified 03/13/23 21:47 Breathing <JOHN Castillo Last Filed: 03/13/23 20:44> Review of Systems Review of Systems: CONSTITUTIONAL: Denies fever, chills EYES: Denies visual changes, redness, or discharge. ENT: See HPI CARDIOVASCULAR: See HPI RESPIRATORY: See HPI GASTROINTESTINAL: Denies abdominal pain, nausea, vomiting, or diarrhea. GENITOURINARY: Denies dysuria or hematuria. SKIN: See HPI MUSCULOSKELETAL: Denies back pain, joint pain, or myalgia. NEUROLOGIC: Denies headache, numbness, dizziness, or weakness. PSYCHIATRIC: Denies anxiety or depression. <JOHN Castillo Last Filed: 03/13/23 20:44> [facility] Past Medical History Medical History: Medical History (Updated 03/13/23 @ 22:30 by Jimmy Lozada MD) Arthritis Asthma Depression Diabetes Diabetes mellitus with hyperglycemia Hypercholesteremia Hyperlipidemia Kidney stones Obesity <JOHN Castillo Last Filed: 03/13/23 20:44> Surgical History Surgical History: Surgical History History of cholecystectomy History of dilation and curettage History of knee surgery LT History of tonsillectomy History of tubal ligation <JOHN Castillo Last Filed: 03/13/23 20:44> Family History
[2023-03-13] MEDS: IPRATROPIUM BR 0.02% INH SOLN 0.5 MG/2.5 ML VIAL INHALATION (18:00)
[2023-03-13] MEDS: ALBUTEROL SULFATE NEB 2.5 MG/3 ML INH INHALATION (18:00)
[2023-03-13 18:10] LABS: Basophils Absolute Auto 0.1 K/mm3 (0.0-0.1); Basophils Percent Auto 0.7 % (0.2-1.2); Eosinophils Absolute Auto 0.4 K/mm3 (0-0.3); Eosinophils Percent Auto 4.1 % (0-4.4); Hemoglobin 13.5 g/dL (12.0-15.0); Immature Granulocyte Absolute 0.02 K/mm3 (0.00-0.031); Immature Granulocyte Percent A 0.2 % (0-0.5); Lymphocytes Absolute Auto 3.71 K/mm3 (0.9-3.2); Lymphocytes Percent Auto 35.5 % (18.3-44.2); Mean Corpuscular HGB Conc 33.8 g/dl (32-36); Mean Corpuscular Hemoglobin 33.8 pg (26-34); Mean Platelet Volume 9.1 fl (7.4-10.4); Monocytes Absolute Auto 0.7 K/mm3 (0.1-0.6); Monocytes Percent Auto 6.9 % (2.6-8.5); Neutrophils Absolute Auto 5.5 K/mm3 (1.3-6.7); Neutrophils Percent Auto 52.6 % (45.5-73.1); Platelet Count Result 337 k/mm3 (150-375); Red Cell Distribution Width 13.2 % (11.5-14.5); White Blood Count 10.5 K/mm3 (4.5-10.0)
[2023-03-13] MEDS: SODIUM CHLORIDE 0.9% IV 1,000 ML 999 ML IV CONT (18:17)
[2023-03-13 18:20] LABS: INR 0.8; Prothrombin Time 11.9 Seconds (11.1-14.7)
[2023-03-13 18:21] LABS: Partial Thromboplastin Time 29.7 SECONDS (22.3-36.8)
[2023-03-13 18:24] LABS: Alanine Aminotransferase 25 U/L (6-35); Albumin Level 4.7 g/dL (3.5-5.1); Alkaline Phosphatase 130 U/L (38-126); Anion Gap 10 mmol/L (8-16); Aspartate Amino Transferase 32 U/L (14-36); Bilirubin,Total 0.4 mg/dL (0.2-1.3); Blood Urea Nitrogen 12 mg/dL (7-17); Calcium 9.5 mg/dL (8.4-10.2); Carbon Dioxide 30 mmol/L (22-30); Chloride 93 mmol/L (98-107); Estimated CRCL calculation 48 ml/min; Estimated Glomerular Filt Rate 55; Glucose 105 mg/dL (65-110); Lipase 43 U/L (23-300); Potassium 4.2 mmol/L (3.4-5.0); Sodium 133 mmol/L (137-145)
[2023-03-13 18:33] LABS: Troponin I 0.034 ng/mL (0.000-0.034)
[2023-03-13 18:41] LABS: Strep Group A RT-PCR NOT DETECTED (Negative)
[2023-03-13 18:45] LABS: CRP 1.2 mg/dL (<1.0)
[2023-03-13 18:47] LABS: NT Pro B Type Natriuretic Pept 482 pg/mL (19.9-100)
[2023-03-13 18:51] LABS: Influenza A QL RT-PCR Negative (Negative); Influenza B QL RT-PCR Negative (Negative); SARS-CoV-2 RNA PCR Negative (Negative)
[2023-03-13 19:03] LABS: Appearance Urine Clear (Clear); Bilirubin Urine Negative (Negative); Blood Urine Trace-intact (Negative); Color Urine Yellow (Yellow); Glucose Urine UA Negative (Negative); Ketones Urine Negative (Negative); Leukocyte Esterase Ur 2+ LEU/UL (Negative); Nitrate Urine Negative (Negative); Protein Urine Negative (Negative); Urobilinogen Urine 0.2 mg/dL (<2.0)
[2023-03-13 19:04] LABS: Bacteria Urine None Seen /hpf; RBC Urine 0-2 /hpf (0-2); Squamous Epithelial Cell Urine None seen /hpf (Few); WBC Urine >100 /hpf
[2023-03-13 19:08] LABS: Erythrocyte Sedimentation Rate 28 mm/hr (0-20)
[2023-03-13 19:10] LABS: Add Urine Microscopic? YES; Lactic Acid Reflex 1.6 mmol/L (0.7-2.0)
[2023-03-13] MEDS: FUROSEMIDE INJ 40 MG/4 ML VIAL IV PUSH (19:59)
[2023-03-13] MEDS: VANCOMYCIN 1,250 MG/NS 250 ML 1,250 MG/250 ML BAG 166.67 MG IVPB (20:50)
[2023-03-13] MEDS: metroNIDAZOLE 500 MG/ISO 100ML 500 MG/100 ML BAG 100 MG IVPB (20:50)
[2023-03-13] MEDS: CEFEPIME 2 GM/NS 50 ML 2 GM/50 ML BAG IVPB (20:57)
--- NOTE | 2023-03-13 21:45 | ADMGEN ---
This patient, Ramandeep Scott, was admitted to Medical Room 258-01. Patient/family oriented to hospital policies and general routines including ID bracelet, bed and alarms, visiting hours, pain management, procedures, bathroom and other care routines, personal items, smoking policy, room service/diet, and visiting hours. Information on how to activate the Rapid Response Team has been discussed. Patient/Family are encouraged to report perceived risks to care and to ask questions if they do not understand what they are told or what they should do.
--- NOTE | 2023-03-13 22:04 | PM.IMHP ---
H&P: HPI History of Present Illness Date/Time: 03/13/23 22:04 Chief Complaint: Patient brought to the ER for evaluation of her chest pain, cough, shortness of breath and left foot ulcer Narrative: 72 years old white female with chronic medical issues is complaining of feeling tired and fatigued the last few days. She is having some worsening shortness of breath for which she has been using albuterol. She is also complaining of chest pain off and on for the last few days in the anterior chest, intensity 4-5/10, no radiation, palpitations or associated sweating. She also has an infected ulcer underlying the head of left big toe which has a black scab on it. Workup was done in the ER, EKG and 1st set of cardiac enzymes are normal. She has been diagnosed with new onset CHF, UTI, URI and diabetic foot ulcer. She is being admitted for medical management, IV antibiotics and cardiology evaluation and workup. Review of Systems Review of Systems: No sweating, palpitations, fever rigor chills, nausea vomiting, loss of consciousness or blurred vision All systems reviewed & are unremarkable except as noted in HPI and below PMFSH Past Medical History Medical History (Updated 03/13/23 @ 22:15 by Jimmy Lozada MD) Arthritis Asthma Depression Diabetes Diabetes mellitus with hyperglycemia Hypercholesteremia Hyperlipidemia Kidney stones Obesity Surgical History Surgical History History of cholecystectomy History of dilation and curettage History of knee surgery LT History of tonsillectomy History of tubal ligation Family History Family History Father Family history of cardiovascular disease Diabetes mellitus History of open heart surgery History of renal dialysis Mother Family history of cardiovascular disease Diabetes mellitus History of renal dialysis Sibling Family history of alcoholism Grandparent Family history of arthritis Sibling Family history of mental disorder Sibling Family history of mental disorder Social History Social History Smoking status: Never smoker Tobacco type: cigarettes Second hand tobacco smoke exposure: No Alcohol intake: never Substance use: never Substance use type: does not use Lack of Transportation: No Lack of Food: Never True Current Housing: I Have Housing Concerned About Future Housing: No Difficulty Paying Gas/Electric Bills: No Difficulty Paying for Meds: No Currently Unemployed: No Education: High School Diploma/GED Difficulty w/ Childcare or Family Care: No Living arrangements: alone Occupation/Education: other Additional occupation/education comments: disable Gender identity (if verbalized by the patient): Female Sexual Orientation (if Verbalized by the Patient): Straight or Heterosexual Spiritual care concerns: No Meds Home Medications and Allergies Home Medications Medication Instructions Recorded Confirmed Type simvastatin 20 mg tablet 20 mg PO HS 08/28/20 03/13/23 History albuterol 90 mcg/actuation aerosol 2 mcg inhalation QID 11/07/20 03/13/23 History inhaler glipizide 10 mg tablet, extended 20 mg PO DAILY 11/07/20 03/13/23 History release 24 hr (Glucotrol XL) insulin glargine 100 unit/mL (3 60 unit subcut HS 11/07/20 03/13/23 History mL) subcutaneous pen (Basaglar KwikPen U-100 Insulin) loratadine 10 mg tablet (Claritin) 10 mg PO DAILY 60 days #60 tabs 11/07/20 03/13/23 Rx lurasidone 120 mg tablet (Latuda) 120 mg PO HS 11/07/20 03/13/23 History tramadol 50 mg tablet 50 mg PO Q4H PRN pain #30 tabs 01/06/22 03/13/23 Rx fluticasone propionate 50 1 spray intranasal BID PRN 03/13/23 03/13/23 History mcg/actuation nasal Congestion spray,suspension (Allergy Relief (fluticasone)) irbesartan 300 mg tablet 300 mg PO HS 03/13/23 03/13/23 Histor
[2023-03-13 23:16] LABS: Troponin I 0.037 ng/mL (0.000-0.034)
[2023-03-13 23:34] LABS: Glucose Point of Care 107 mg/dl (65-105)
[2023-03-13] MEDS: SERTRALINE HCL 25 MG TABLET PO (23:55)
[2023-03-13] MEDS: SIMVASTATIN 20 MG TABLET PO (23:55)
[2023-03-13] MEDS: IRBESARTAN 150 MG TABLET 300 MG PO (23:55)
[2023-03-13] MEDS: VANCOMYCIN 1,000 MG/NS 250 ML 1,000 MG/250 ML BAG 250 MG IVPB (23:55)
[2023-03-14] VITALS (10 sets, daily range): BP systolic 105–124; BP diastolic 48–69; PULSE 86–109; RESP 19–20; TEMP 36.6–37.2; O2SAT 94–98
[2023-03-14 01:55] LABS: Troponin I 0.037 ng/mL (0.000-0.034)
[2023-03-14 05:45] LABS: Basophils Absolute Auto 0.1 K/mm3 (0.0-0.1); Basophils Percent Auto 0.7 % (0.2-1.2); Eosinophils Absolute Auto 0.4 K/mm3 (0-0.3); Eosinophils Percent Auto 3.6 % (0-4.4); Hematocrit 35.7 % (37.0-47.0); Hemoglobin 12.2 g/dL (12.0-15.0); Immature Granulocyte Absolute 0.04 K/mm3 (0.00-0.031); Immature Granulocyte Percent A 0.4 % (0-0.5); Lymphocytes Absolute Auto 2.04 K/mm3 (0.9-3.2); Lymphocytes Percent Auto 20.4 % (18.3-44.2); Mean Corpuscular HGB Conc 34.2 g/dl (32-36); Mean Corpuscular Hemoglobin 33.8 pg (26-34); Mean Corpuscular Volume 98.9 fl (80-100); Mean Platelet Volume 9.2 fl (7.4-10.4); Monocytes Absolute Auto 0.8 K/mm3 (0.1-0.6); Monocytes Percent Auto 7.5 % (2.6-8.5); Neutrophils Absolute Auto 6.7 K/mm3 (1.3-6.7); Neutrophils Percent Auto 67.4 % (45.5-73.1); Platelet Count Result 304 k/mm3 (150-375); Red Blood Count 3.61 M/mm3 (4.2-5.4); Red Cell Distribution Width 12.9 % (11.5-14.5)
[2023-03-14] MEDS: metroNIDAZOLE 500 MG/ISO 100ML 500 MG/100 ML BAG 100 MG IVPB ×3 (05:51→21:37)
[2023-03-14 06:00] LABS: Anion Gap 8 mmol/L (8-16); Blood Urea Nitrogen 13 mg/dL (7-17); Calcium 8.7 mg/dL (8.4-10.2); Carbon Dioxide 29 mmol/L (22-30); Chloride 97 mmol/L (98-107); Estimated CRCL calculation 58 ml/min; Estimated Glomerular Filt Rate > 60; Glucose 113 mg/dL (65-110); Phosphorus 4.7 mg/dL (2.5-4.5); Potassium 3.8 mmol/L (3.4-5.0); Sodium 134 mmol/L (137-145)
[2023-03-14 08:13] LABS: Glucose Point of Care 136 mg/dl (65-105)
[2023-03-14] MEDS: CEFEPIME 1 GM/NS 50 ML 1 GM/50 ML BAG IVPB ×2 (08:15→20:28)
[2023-03-14] MEDS: ENOXAPARIN 40 MG/0.4 ML SYRINGE SUB-Q (08:16)
[2023-03-14] MEDS: glipiZIDE XL 5 MG TABCR 20 MG PO (08:16)
[2023-03-14] MEDS: LORATADINE 10 MG TABLET PO (08:17)
[2023-03-14] MEDS: FUROSEMIDE INJ 40 MG/4 ML VIAL 20 MG IV PUSH (08:17)
[2023-03-14] MEDS: ALBUTEROL SULFATE (*SP) AEROSOL 1 PUFF 2 PUFF INHALATION ×3 (10:10→20:20)
[2023-03-14] MEDS: traMADol HCL (*CRX) 50 MG TABLET PO (11:09)
[2023-03-14 12:15] LABS: Glucose Point of Care 152 mg/dl (65-105)
--- NOTE | 2023-03-14 12:18 | PM.IMPN ---
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 without evidence of necrosis Code(s): E11.621 - Type 2 diabetes mellitus with foot ulcer; L97.509 - Non-pressure chronic ulcer of other part of unspecified foot with unspecified severity Status: Acute (2) Urinary tract infection: Qualifiers: Hematuria presence: without hematuria Urinary tract infection type: acute cystitis Qualified Code(s): N30.00 - Acute cystitis without hematuria Code(s): N39.0 - Urinary tract infection, site not specified Status: Acute (3) Pulmonary edema: Qualifiers: Chronicity: acute Qualified Code(s): J81.0 - Acute pulmonary edema Code(s): J81.1 - Chronic pulmonary edema Status: Acute (4) URI (upper respiratory infection): Qualifiers: URI type: unspecified viral URI Qualified Code(s): J06.9 - Acute upper respiratory infection, unspecified Code(s): J06.9 - Acute upper respiratory infection, unspecified Status: Acute (5) Cellulitis: Qualifiers: Laterality: left Site of cellulitis: extremity Site of cellulitis of extremity: lower extremity Qualified Code(s): L03.116 - Cellulitis of left lower limb Code(s): L03.90 - Cellulitis, unspecified Status: Acute (6) Chest pain: Code(s): R07.9 - Chest pain, unspecified Status: Acute (7) Shortness of breath: Code(s): R06.02 - Shortness of breath Status: Acute (8) Diabetes mellitus with hyperglycemia: Code(s): E11.65 - Type 2 diabetes mellitus with hyperglycemia Status: Acute (9) Hyperlipidemia: Code(s): E78.5 - Hyperlipidemia, unspecified Status: Acute (10) Obesity: Code(s): E66.9 - Obesity, unspecified Status: Acute Plan Left lower leg cellulitis with diabetic foot ulcer left great toe wound Care will be consulted may need some debridement will consult General surgery as well. Continue IV antibiotics. X-ray negative for osteomyelitis. Congestive heart failure newly diagnosed BNP mildly elevated. Chest x-ray with interstitial edema. Mild troponin leak flat. Echo ordered. Cardiology consulted. Lasix mild volume overload still present. Venous duplex negative for DVT since he is do look likely sound like a [place] Type 2 diabetes on insulin Accu-Chek monitor and adjust as needed Hypertension Hyperlipidemia History of kidney stones Asthma DVT prophylaxis Lovenox UTI UA positive Elevated D-dimer CTA no of PE Code status full code Subjective Date/time seen: 03/14/23 12:18 Interval history: Feels better today. Shortness of breath has improved. No nausea vomiting. Review of Systems Review of Systems: All systems reviewed & are unremarkable except as noted in HPI and below Exam Narrative: General physical exam: obese white female, lying in bed, not in acute distress Head/eyes: Atraumatic, EOMI, PERRLA ENT: Moist mucous membranes, nasal passages clear Neck: Supple, full range of motion, trachea midline CVS: S1 + S2, regular rate and rhythm, no murmurs Respiratory: Bilaterally fair air entry in both lung zeng, no wheezes or rhonchi Abdomen: Soft, non-tender, bowel sounds +ve, no organomegaly Extremities: No clubbing, no cyanosis, +1 bilateral pitting edema, no calf tenderness Musculoskeletal: Moves all, adequate range of motion, no muscle spasms Skin: Warm, dry, no jaundice, no cyanosis, + erythema/ cellulitis underlying left big toe with callus and foul-smelling discharge from ball of great toe Neurological: Awake, alert, oriented x 3, cranial nerves II-XII in
--- NOTE | 2023-03-14 14:08 | PM.CNGS ---
Assessment and Plan Assessment and plan (1) Diabetic foot ulcer: Qualifiers: Diabetes mellitus type: type 2 Diabetic foot ulcer location: toe Laterality: left Non-pressure ulcer stage: with muscle involvement without evidence of necrosis Qualified Code(s): E11.621 - Type 2 diabetes mellitus with foot ulcer; L97.525 - 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 involvement without evidence of necrosis Code(s): E11.621 - Type 2 diabetes mellitus with foot ulcer; L97.509 - Non-pressure chronic ulcer of other part of unspecified foot with unspecified severity Status: Acute Assessment and Plan: I reviewed the foot x-ray and discussed the findings with the patient. She appears to have a superficial wound and callus to the surface of the left 1st MTP joint. This can likely be treated with removal of the callus and local wound care. Will have wound care nurse evaluate patient in the morning to help with the long-term wound care plans. Will start silver gel daily wound care for now. I do not think this will need any deeper surgical debridement or amputation given these findings. (2) Diabetes mellitus with hyperglycemia: Code(s): E11.65 - Type 2 diabetes mellitus with hyperglycemia Status: Acute Assessment and Plan: Recommend continued close glucose control to prevent risks of worsening infection. (3) Pulmonary edema: Qualifiers: Chronicity: acute Qualified Code(s): J81.0 - Acute pulmonary edema Code(s): J81.1 - Chronic pulmonary edema Status: Acute (4) URI (upper respiratory infection): Qualifiers: URI type: unspecified viral URI Qualified Code(s): J06.9 - Acute upper respiratory infection, unspecified Code(s): J06.9 - Acute upper respiratory infection, unspecified Status: Acute History of Present Illness Consult details Consult date: 03/14/23 Reason for consult: wound care (left foot wound) Requesting physician: Deshawn Nuñez MD Narrative: A 72-year-old woman who I am asked to see for a left foot wound. She has had a chronic callus to her 1st MTP joint for a long time. She states that recently she has had more trouble walking on this foot and has pain in the region. She also feels some generalized swelling to the foot. She presented to the emergency department yesterday for multiple upper respiratory complaints and was admitted for upper respiratory infection, pulmonary edema, and diabetic foot ulcer. Her glucose has not been to elevated since being admitted, but there is no hemoglobin A1c yet. Review of Systems Review of Systems: All systems reviewed & are unremarkable except as noted in HPI and below Eyes: Eyes: Denies change in vision ENT: Denies hearing loss, Denies neck pain and Denies sore throat Respiratory: Respiratory: Reports cough, Reports dyspnea and Denies wheezing Genitourinary: Genitourinary: Denies hematuria and Denies dysuria Musculoskeletal: Musculoskeletal: Denies arthralgias, Denies joint swelling and Denies neck pain Allergic/Immunologic: Allergic/Immunologic: Denies wheezing [facility] Past Medical History Medical History (Updated 03/13/23 @ 22:30 by Jimmy Lozada MD) Arthritis Asthma Depression Diabetes Diabetes mellitus with hyperglycemia Hypercholesteremia Hyperlipidemia Kidney stones Obesity Surgical History Surgical History History of cholecystectomy History of dilation and curettage History of knee surgery LT History of tonsillectomy History of tubal ligation Family History Family History Father Family history of cardiovascular disease Diabetes mellitus History of open heart surgery History of renal dialysis Mother Family history of cardiovascular disease Diabetes mellitus History of renal dialysis Sibling Family history of alcoholism Grandparent
[2023-03-14 17:10] LABS: Glucose Point of Care 143 mg/dl (65-105)
[2023-03-14] MEDS: IRBESARTAN 150 MG TABLET 300 MG PO (20:30)
[2023-03-14] MEDS: ACETAMINOPHEN 325 MG TABLET 650 MG PO (20:31)
[2023-03-14] MEDS: SERTRALINE HCL 25 MG TABLET PO (20:31)
[2023-03-14] MEDS: SIMVASTATIN 20 MG TABLET PO (20:32)
[2023-03-14] MEDS: INSULIN GLARGINE (*BKC) 100 UNITS/ML 60 UNITS SUB-Q (20:33)
[2023-03-14 21:32] LABS: Glucose Point of Care 120 mg/dl (65-105)
[2023-03-15] VITALS (14 sets, daily range): BP systolic 105–128; BP diastolic 52–63; PULSE 71–89; RESP 16–20; TEMP 36.2–36.6; O2SAT 94–100
--- NOTE | 2023-03-15 | ECHO_ITS ---
Patient Info Name: Ramandeep Scott Age: 72 years : 1950 Gender: Female Ht: 63 in Wt: 190 lbs BSA: 1.99 m2 HR: 77 bpm BP: 122 / 63 mmHg Heart Rhythm: Sinus Rhythm Technical Quality: Fair Exam Date: 03/15/2023 2:37 PM Exam Location: [facility] Pulmonary Exam Room: 258 Patient Status: Inpatient Admit Date: 03/13/2023 Staff Ordering Physician: Jimmy Lozada MD Nutritional Services Director: Nery Hernández RDCS Attending Provider: Jimmy Lozada MD Exam Type: CA echo dop color flow w con Study Info Indications - new onset chf Complete two-dimensional, color flow and Doppler transthoracic echocardiogram is performed with contrast to opacify the left ventricle and to improve the deliniation of the left ventricle endocardial borders. Contrast/Agitated Saline Contrast/Ag. Saline: Definity Amount: 2.00 ml Administered By: Nery Hernández RUST Existing IV Access: Yes IV Access Condition: patent with no signs of infiltration Summary 1. Left ventricular chamber dimension is mildly enlarged. 2. Left ventricular systolic function is severely reduced, estimated at 30-35%. 3. There is no increased left ventricular wall thickness. 4. The left ventricular diastolic function is grade I diastolic dysfunction. 5. The basal anteroseptal, and mid anteroseptal are akinetic. 6. The apex, inferior wall, anterior wall, inferoseptal wall, anterolateral wall, and inferolateral wall are hypokinetic. 7. Left atrial chamber dimension is mildly enlarged. 8. There is mild aortic valve regurgitation. 9. The mitral valve has thickened leaflets and calcified annulus. 10. There is mild mitral valve regurgitation. 11. There is moderate tricuspid valve regurgitation. 12. Moderate pulmonary hypertension, estimated pulmonary arterial systolic pressure is 52 mmHg. 13. There is mild pulmonic regurgitation. Left Ventricle Left ventricular chamber dimension is mildly enlarged. Left ventricular systolic function is severely reduced, estimated at 30-35%. There is no increased left ventricular wall thickness. The left ventricular diastolic function is grade I diastolic dysfunction. The basal anteroseptal, and mid anteroseptal are akinetic. The apex, inferior wall, anterior wall, inferoseptal wall, anterolateral wall, and inferolateral wall are hypokinetic. Right Ventricle Right ventricular chamber dimension is normal. Right ventricular systolic function is normal. Left Atria Left atrial chamber dimension is mildly enlarged. Right Atria Right atrial chamber dimension is normal. Atrial Septum Intact interatrial septum visualized by color flow imaging. Aortic Valve The aortic valve is trileaflet. There is mild aortic valve sclerosis. There is no aortic valve stenosis. There is mild aortic valve regurgitation. Pulmonic Valve The pulmonic valve is normal. There is no pulmonic valve stenosis. There is mild pulmonic regurgitation. Mitral Valve The mitral valve has thickened leaflets and calcified annulus. There is no mitral valve stenosis. There is mild mitral valve regurgitation. Tricuspid Valve The tricuspid valve leaflets are normal. There is no significant tricuspid valve stenosis. There is moderate tricuspid valve regurgitation. Moderate pulmonary hypertension, estimated pulmonary arterial systolic pressure is 52 mmHg. Pericardium/Pleural The pericardium appears normal. There is no pericardial effusion. Inferior Vena Cava Normal inferior vena cava with >50% collapse upon inspiration consistent with elevated right atrial pressure
[2023-03-15] MEDS: metroNIDAZOLE 500 MG/ISO 100ML 500 MG/100 ML BAG 100 MG IVPB ×3 (05:53→22:15)
[2023-03-15 06:03] LABS: Basophils Absolute Auto 0.1 K/mm3 (0.0-0.1); Basophils Percent Auto 0.8 % (0.2-1.2); Eosinophils Absolute Auto 0.4 K/mm3 (0-0.3); Eosinophils Percent Auto 5.8 % (0-4.4); Hematocrit 36.7 % (37.0-47.0); Hemoglobin 12.4 g/dL (12.0-15.0); Immature Granulocyte Absolute 0.01 K/mm3 (0.00-0.031); Immature Granulocyte Percent A 0.1 % (0-0.5); Lymphocytes Percent Auto 28.8 % (18.3-44.2); Mean Corpuscular HGB Conc 33.8 g/dl (32-36); Mean Corpuscular Hemoglobin 33.5 pg (26-34); Mean Corpuscular Volume 99.2 fl (80-100); Mean Platelet Volume 8.7 fl (7.4-10.4); Monocytes Absolute Auto 0.7 K/mm3 (0.1-0.6); Monocytes Percent Auto 9.1 % (2.6-8.5); Neutrophils Percent Auto 55.4 % (45.5-73.1); Platelet Count Result 275 k/mm3 (150-375); Red Cell Distribution Width 13.2 % (11.5-14.5); White Blood Count 7.3 K/mm3 (4.5-10.0)
[2023-03-15 06:13] LABS: Anion Gap 4 mmol/L (8-16); Blood Urea Nitrogen 14 mg/dL (7-17); Carbon Dioxide 32 mmol/L (22-30); Chloride 96 mmol/L (98-107); Estimated CRCL calculation 58 ml/min; Estimated Glomerular Filt Rate > 60; Glucose 98 mg/dL (65-110); Magnesium 2.2 mg/dL (1.6-2.3); Potassium 3.8 mmol/L (3.4-5.0); Sodium 132 mmol/L (137-145)
[2023-03-15 06:24] LABS: Troponin I 0.028 ng/mL (0.000-0.034)
[2023-03-15 06:41] LABS: Hemoglobin A1C 6.4 % (<5.7)
[2023-03-15] MEDS: ALBUTEROL SULFATE (*SP) AEROSOL 1 PUFF 2 PUFF INHALATION ×4 (07:58→20:09)
[2023-03-15] MEDS: CEFEPIME 1 GM/NS 50 ML 1 GM/50 ML BAG IVPB ×2 (08:05→21:34)
[2023-03-15] MEDS: ENOXAPARIN 40 MG/0.4 ML SYRINGE SUB-Q (08:12)
[2023-03-15] MEDS: LORATADINE 10 MG TABLET PO (08:13)
[2023-03-15] MEDS: FUROSEMIDE INJ 40 MG/4 ML VIAL 20 MG IV PUSH (08:13)
[2023-03-15 08:18] LABS: Glucose Point of Care 94 mg/dl (65-105)
[2023-03-15] MEDS: glipiZIDE XL 5 MG TABCR 20 MG PO (08:22)
[2023-03-15] MEDS: traMADol HCL (*CRX) 50 MG TABLET PO ×2 (10:04→22:11)
--- NOTE | 2023-03-15 11:40 | PM.PNGS ---
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 without evidence of necrosis Code(s): E11.621 - Type 2 diabetes mellitus with foot ulcer; L97.509 - Non-pressure chronic ulcer of other part of unspecified foot with unspecified severity Status: Acute Assessment and Plan: Wound care nurse removed the overlying callus today and the left foot wound appears stable. Continue silver gel dressing changes. The patient feels comfortable doing dressing changes at home. Will order a postop shoe for ambulation. She is ambulating well and trying to maintain heel-touch weight bearing on the left foot. No indication for any surgical intervention. Will sign off at this time. Patient can follow-up with her Glue Mounter Operator after discharge for continued care. She has an appointment with her Glue Mounter Operator on Mar 29. (2) Diabetes mellitus with hyperglycemia: Code(s): E11.65 - Type 2 diabetes mellitus with hyperglycemia Status: Acute Assessment and Plan: Management per Hospitalist. (3) Pulmonary edema: Qualifiers: Chronicity: acute Qualified Code(s): J81.0 - Acute pulmonary edema Code(s): J81.1 - Chronic pulmonary edema Status: Acute (4) URI (upper respiratory infection): Qualifiers: URI type: unspecified viral URI Qualified Code(s): J06.9 - Acute upper respiratory infection, unspecified Code(s): J06.9 - Acute upper respiratory infection, unspecified Status: Acute Plan I have discussed the patient's case and plan of care with Dr. Riley. Subjective Subjective Date/Time Seen: 03/15/23 11:40 Patient reports: no new complaints and afebrile Interval history: This is a 72 yo woman who presented to the ER two days ago with multiple upper respiratory complaints and was admitted for URI, pulmonary edema, and diabetic foot ulcer. We are seeing her for the diabetic foot ulcer. Chart reviewed. She is seen this morning after the wound care nurses evaluate the patient and removed the callus over her left foot wound. No new complaints. Exam Const: General: comfortable and no acute distress Skin: Other: Left foot dressing removed. There is a 1.5 x 1 x 1 cm open wound on the plantar foot 1st MTP joint with a pale wound bed with some fibrinous tissue, no purulent drainage. Minimal localized erythema on the medial/dorsal aspect of the foot. Appears stable and superficial. Extrem: Right lower extremity: foot Details: vascular exam Details: dorsalis pedis pulse present and posterior tibial pulse present Left lower extremity: foot Details: vascular exam Details: dorsalis pedis pulse present and posterior tibial pulse present Objective Data Vital Signs Vital Signs: Vital Signs - 24 hr 03/14/23 12:00 03/14/23 12:00 03/14/23 16:00 Temperature 98 F 98 F Pulse Rate 86 109 H 108 H Respiratory Rate 19 20 Blood Pressure 108/60 105/69 Pulse Oximetry 97 97 Oxygen Delivery 03/14/23 16:00 03/14/23 19:38 03/14/23 20:30 Temperature 98.9 F Pulse Rate 105 H 95 Respiratory Rate 20 Blood Pressure 119/48 L Pulse Oximetry 94 Oxygen Delivery Room Air 03/15/23 00:00 03/15/23 02:58 03/14/23 20:00 Temperature 97.8 F 97.3 F L Pulse Rate 84 82 94 Respiratory Rate 20 20 Blood Pressure 105/52 L 122/63 Pulse Oximetry 94 97 Oxygen Delivery 03/15/23 00:00 03/15/23 04:00 03/15/23 07:31 Temperature 97.2 F L Pulse Rate 82 77 73 Respiratory Rate 16 Blood Pressure 128/56 L Pulse Oximetry 97 Oxygen Delivery 03/15/23 07:59 03/15/23 07:59 03/15/23 08:13 Temperature Pulse Ra
--- NOTE | 2023-03-15 11:47 | PM.CNCAR ---
Assessment and Plan Assessment and plan (1) Left bundle branch block: Code(s): I44.7 - Left bundle-branch block, unspecified Status: Acute Assessment and Plan: Possibly ischemic. 2D echocardiogram Doppler is ordered and will be reviewed. Will eventually need ischemic evaluation (2) New onset of congestive heart failure: Code(s): I50.9 - Heart failure, unspecified Status: Acute Assessment and Plan: Probably mixed diastolic and systolic in etiology. Will lower her furosemide from 20 mg IV daily down to 20 mg p.o. daily. KCL 40 mg p.o. x1. Will start Toprol-XL 25 mg p.o. daily. Continue irbesartan for now (3) Hyperlipidemia associated with type 2 diabetes mellitus: Code(s): E11.69 - Type 2 diabetes mellitus with other specified complication; E78.5 - Hyperlipidemia, unspecified Status: Acute Assessment and Plan: Continue statin and will check a lipid panel. 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 Will await echo before making decision regarding ischemic evaluation (stress test versus catheterization) History of Present Illness History of Present Illness Consult date/time: 03/15/23 11:47 Requesting physician: Jimmy Lozada MD Consult reason: Other (CHF, elevated troponins) Reason For Visit: Pulmonary edema,diabetic foot ulcer,cellulitis,UTI Narrative: Reason for consultation: CHF, elevated troponin Requesting provider: Dr. Lozada Date of service 03/15/2023 History patient 72-year-old female who does not have known cardiac history. She presented hospital because of worsening shortness of breath x1 week. She thinks it was related to asthma. She was given some inhalers and is feeling better. She has had some worsening swelling though also in her lower extremities x1 week. She also has an infected ulcer is receiving IV antibiotics. She briefly describe some chest pain earlier today and was on the left side which did not radiate and was short lived and lasted a few minutes. She denies any syncope, presyncope, paroxysmal nocturnal dyspnea, orthopnea, palpitations. EKG show a left bundle-branch block. Review of Systems Review of Systems: All systems reviewed & are unremarkable except as noted in HPI and below Constitutional: Constitutional: Denies body ache(s) Eyes: Eyes: Denies blurry vision ENT: Reports Normal hearing present Cardiovascular: Cardiovascular: Reports chest pain Respiratory: Respiratory: Reports dyspnea Gastrointestinal: Gastrointestinal: Denies abdominal pain Genitourinary: Genitourinary: Denies hematuria Musculoskeletal: Musculoskeletal: Reports back pain Integumentary/Breasts: Skin/Breast: Denies skin pain and Reports wounds Neurologic: Denies Abnormal speech present Psychiatric: Psychiatric: Denies anxiety Endocrine: Endocrine: Denies excessive sweating Hematologic/Lymphatic: Hematologic/Lymphatic: Denies easy bleeding Allergic/Immunologic: Allergic/Immunologic: Denies GI upset with certain foods PMFSH Past Medical History Medical History (Updated 03/15/23 @ 11:52 by Asa Nicole MD) Arthritis Asthma Depression Diabetes Diabetes mellitus with hyperglycemia H
[2023-03-15 11:57] LABS: Glucose Point of Care 161 mg/dl (65-105)
[2023-03-15] MEDS: POTASSIUM CHLORIDE 20 MEQ ER TABLET 40 MEQ PO (12:05)
[2023-03-15] MEDS: METOPROLOL SUCCINATE EXT REL 25 MG TABCR PO (12:05)
[2023-03-15 12:31] LABS: Cholesterol 127 mg/dL (0-200); HDL Direct 38 mg/dL; Triglycerides 152 mg/dL (<150)
[2023-03-15 12:40] LABS: LDL Cholesterol Direct 58 mg/dL
--- NOTE | 2023-03-15 13:06 | PM.IMPN ---
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 without evidence of necrosis Code(s): E11.621 - Type 2 diabetes mellitus with foot ulcer; L97.509 - Non-pressure chronic ulcer of other part of unspecified foot with unspecified severity Status: Acute (2) Urinary tract infection: Qualifiers: Hematuria presence: without hematuria Urinary tract infection type: acute cystitis Qualified Code(s): N30.00 - Acute cystitis without hematuria Code(s): N39.0 - Urinary tract infection, site not specified Status: Acute (3) Pulmonary edema: Qualifiers: Chronicity: acute Qualified Code(s): J81.0 - Acute pulmonary edema Code(s): J81.1 - Chronic pulmonary edema Status: Acute (4) URI (upper respiratory infection): Qualifiers: URI type: unspecified viral URI Qualified Code(s): J06.9 - Acute upper respiratory infection, unspecified Code(s): J06.9 - Acute upper respiratory infection, unspecified Status: Acute (5) Cellulitis: Qualifiers: Laterality: left Site of cellulitis: extremity Site of cellulitis of extremity: lower extremity Qualified Code(s): L03.116 - Cellulitis of left lower limb Code(s): L03.90 - Cellulitis, unspecified Status: Acute (6) Chest pain: Code(s): R07.9 - Chest pain, unspecified Status: Acute (7) Shortness of breath: Code(s): R06.02 - Shortness of breath Status: Acute (8) Diabetes mellitus with hyperglycemia: Code(s): E11.65 - Type 2 diabetes mellitus with hyperglycemia Status: Acute (9) Hyperlipidemia: Code(s): E78.5 - Hyperlipidemia, unspecified Status: Acute (10) Obesity: Code(s): E66.9 - Obesity, unspecified Status: Acute Plan Left lower leg cellulitis with diabetic foot ulcer left great toe wound Care will be consulted may need some debridement consulted general surgery.. Continue IV antibiotics. X-ray negative for osteomyelitis. Congestive heart failure newly diagnosed BNP mildly elevated. Chest x-ray with interstitial edema. Mild troponin leak flat. Echo ordered. Cardiology consulted. Lasix mild volume overload still present. Venous duplex negative for DVT. cardiology consulted. Type 2 diabetes on insulin Accu-Chek monitor and adjust as needed Hypertension Hyperlipidemia History of kidney stones Asthma DVT prophylaxis Lovenox UTI UA positive Elevated D-dimer CTA no of PE Code status full code Subjective Date/time seen: 03/15/23 13:06 Interval history: Wound nurse saw the patient today. Doing better. No chest pain or shortness of breath. Leg feels better Review of Systems Review of Systems: All systems reviewed & are unremarkable except as noted in HPI and below Exam Narrative: General physical exam: obese white female, lying in bed, not in acute distress Head/eyes: Atraumatic, EOMI, PERRLA ENT: Moist mucous membranes, nasal passages clear Neck: Supple, full range of motion, trachea midline CVS: S1 + S2, regular rate and rhythm, no murmurs Respiratory: Bilaterally fair air entry in both lung zeng, no wheezes or rhonchi Abdomen: Soft, non-tender, bowel sounds +ve, no organomegaly Extremities: No clubbing, no cyanosis, +1 bilateral pitting edema, no calf tenderness Musculoskeletal: Moves all, adequate range of motion, no muscle spasms Skin: Warm, dry, no jaundice, no cyanosis, + erythema/ cellulitis underlying left big toe with callus and foul-smelling discharge from ball of great toe. The callus has been shaved off today Neurological: Awake, alert, lou
[2023-03-15] MEDS: PERFLUTREN LIPID MICROSPHERES 1.5 ML VIAL DILUTED TO 10 ML TOTAL VOLUME IV PUSH (15:15)
--- NOTE | 2023-03-15 16:42 | IVDEFINITY ---
Prior to administration of IV Definity the patient was educated on the risks and benefits of the imaging enhancing agent including potential adverse side effects. The patient verbalized understanding. Allergies were verified. No exclusion criteria were identified and at least one of the following inclusion criteria were met: 1) physician request, 2) patient technically difficult to image (per the [place] [employer] guidelines of two or more segments not discernable within the apical view), or 3) questionable left ventricular function. ?
[2023-03-15 16:52] LABS: Glucose Point of Care 80 mg/dl (65-105)
[2023-03-15 21:10] LABS: Glucose Point of Care 70 mg/dl (65-105)
[2023-03-15 21:24] LABS: Vancomycin Trough 10.2 ug/mL (10.0-20.0)
[2023-03-15] MEDS: GLUCOSE ORAL GEL 15 GM OF GLUCSE IN 37.5 GM TUBE PO (21:26)
[2023-03-15 21:30] LABS: Glucose Point of Care 67 mg/dl (65-105)
[2023-03-15] MEDS: IRBESARTAN 150 MG TABLET 300 MG PO (21:35)
[2023-03-15] MEDS: SERTRALINE HCL 25 MG TABLET PO (21:35)
[2023-03-15] MEDS: SIMVASTATIN 20 MG TABLET PO (21:35)
[2023-03-15 21:50] LABS: Glucose Point of Care 85 mg/dl (65-105)
[2023-03-15 22:48] LABS: Glucose Point of Care 161 mg/dl (65-105)
[2023-03-16] VITALS (14 sets, daily range): BP systolic 104–121; BP diastolic 48–76; PULSE 72–93; RESP 16–20; TEMP 36.3–36.9; O2SAT 95–99
[2023-03-16] MEDS: metroNIDAZOLE 500 MG/ISO 100ML 500 MG/100 ML BAG 100 MG IVPB ×3 (05:29→21:23)
[2023-03-16] MEDS: ALBUTEROL SULFATE (*SP) AEROSOL 1 PUFF 2 PUFF INHALATION ×5 (05:40→20:15)
[2023-03-16 05:49] LABS: Basophils Absolute Auto 0.1 K/mm3 (0.0-0.1); Basophils Percent Auto 0.7 % (0.2-1.2); Eosinophils Absolute Auto 0.5 K/mm3 (0-0.3); Eosinophils Percent Auto 6.4 % (0-4.4); Hematocrit 38.5 % (37.0-47.0); Hemoglobin 12.9 g/dL (12.0-15.0); Immature Granulocyte Absolute 0.02 K/mm3 (0.00-0.031); Immature Granulocyte Percent A 0.3 % (0-0.5); Lymphocytes Absolute Auto 2.28 K/mm3 (0.9-3.2); Lymphocytes Percent Auto 32.3 % (18.3-44.2); Mean Corpuscular HGB Conc 33.5 g/dl (32-36); Mean Corpuscular Hemoglobin 33.8 pg (26-34); Mean Corpuscular Volume 100.8 fl (80-100); Monocytes Absolute Auto 0.6 K/mm3 (0.1-0.6); Monocytes Percent Auto 8.9 % (2.6-8.5); Neutrophils Absolute Auto 3.6 K/mm3 (1.3-6.7); Neutrophils Percent Auto 51.4 % (45.5-73.1); Platelet Count Result 288 k/mm3 (150-375); Red Blood Count 3.82 M/mm3 (4.2-5.4); Red Cell Distribution Width 13.2 % (11.5-14.5); White Blood Count 7.1 K/mm3 (4.5-10.0)
[2023-03-16 06:07] LABS: Anion Gap 10 mmol/L (8-16); Blood Urea Nitrogen 11 mg/dL (7-17); Calcium 8.8 mg/dL (8.4-10.2); Carbon Dioxide 27 mmol/L (22-30); Chloride 95 mmol/L (98-107); Estimated CRCL calculation 58 ml/min; Estimated Glomerular Filt Rate > 60; Glucose 169 mg/dL (65-110); Magnesium 2.1 mg/dL (1.6-2.3); Potassium 4.3 mmol/L (3.4-5.0); Sodium 132 mmol/L (137-145)
[2023-03-16] MEDS: traMADol HCL (*CRX) 50 MG TABLET PO ×2 (06:49→14:33)
[2023-03-16 08:06] LABS: Glucose Point of Care 129 mg/dl (65-105)
[2023-03-16] MEDS: CEFEPIME 1 GM/NS 50 ML 1 GM/50 ML BAG IVPB (09:46)
[2023-03-16] MEDS: LORATADINE 10 MG TABLET PO (09:47)
[2023-03-16] MEDS: glipiZIDE XL 5 MG TABCR 20 MG PO (09:47)
[2023-03-16] MEDS: ENOXAPARIN 40 MG/0.4 ML SYRINGE SUB-Q (09:47)
[2023-03-16] MEDS: METOPROLOL SUCCINATE EXT REL 25 MG TABCR PO (09:48)
[2023-03-16] MEDS: FUROSEMIDE 20 MG TABLET PO (09:48)
--- NOTE | 2023-03-16 10:00 | PM.IMPN ---
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 without evidence of necrosis Code(s): E11.621 - Type 2 diabetes mellitus with foot ulcer; L97.509 - Non-pressure chronic ulcer of other part of unspecified foot with unspecified severity Status: Acute (2) Urinary tract infection: Qualifiers: Hematuria presence: without hematuria Urinary tract infection type: acute cystitis Qualified Code(s): N30.00 - Acute cystitis without hematuria Code(s): N39.0 - Urinary tract infection, site not specified Status: Acute (3) Pulmonary edema: Qualifiers: Chronicity: acute Qualified Code(s): J81.0 - Acute pulmonary edema Code(s): J81.1 - Chronic pulmonary edema Status: Acute (4) URI (upper respiratory infection): Qualifiers: URI type: unspecified viral URI Qualified Code(s): J06.9 - Acute upper respiratory infection, unspecified Code(s): J06.9 - Acute upper respiratory infection, unspecified Status: Acute (5) Cellulitis: Qualifiers: Laterality: left Site of cellulitis: extremity Site of cellulitis of extremity: lower extremity Qualified Code(s): L03.116 - Cellulitis of left lower limb Code(s): L03.90 - Cellulitis, unspecified Status: Acute (6) Chest pain: Code(s): R07.9 - Chest pain, unspecified Status: Acute (7) Shortness of breath: Code(s): R06.02 - Shortness of breath Status: Acute (8) Diabetes mellitus with hyperglycemia: Code(s): E11.65 - Type 2 diabetes mellitus with hyperglycemia Status: Acute (9) Hyperlipidemia: Code(s): E78.5 - Hyperlipidemia, unspecified Status: Acute (10) Obesity: Code(s): E66.9 - Obesity, unspecified Status: Acute Plan Left lower leg cellulitis with diabetic foot ulcer left great toe wound Care will be consulted may need some debridement consulted general surgery.. Continue IV antibiotics. X-ray negative for osteomyelitis. Wound culture growing MSSA. Will change to Bactrim. Continue for 7-10 days Congestive heart failure newly diagnosed BNP mildly elevated. Chest x-ray with interstitial edema. Mild troponin leak flat. Echo ordered. Cardiology consulted. Lasix mild volume overload still present. Venous duplex negative for DVT. cardiology consulted. Echo is still pending may need stress test depending echo await cardiac recommendations for potential ischemic evaluation Left bundle branch block noted on EKG which is chronic Type 2 diabetes on insulin Accu-Chek monitor and adjust as needed Hypertension Hyperlipidemia History of kidney stones Asthma DVT prophylaxis Lovenox UTI UA positive Elevated D-dimer CTA no of PE Code status full code Subjective Date/time seen: 03/16/23 10:00 Interval history: Was a bit short of breath earlier today with some right upper chest discomfort. Resolved with albuterol neb. denies any cough. Foot wound looks better. Review of Systems Review of Systems: All systems reviewed & are unremarkable except as noted in HPI and below Exam Narrative: General physical exam: obese white female, lying in bed, not in acute distress Head/eyes: Atraumatic, EOMI, PERRLA ENT: Moist mucous membranes, nasal passages clear Neck: Supple, full range of motion, trachea midline CVS: S1 + S2, regular rate and rhythm, no murmurs Respiratory: Bilaterally fair air entry in both lung zeng, no wheezes or rhonchi Abdomen: Soft, non-tender, bowel sounds +ve, no organomegaly Extremities: No clubbing, no cyanosis, +1 bilateral pitting edema, no calf tend
[2023-03-16 12:20] LABS: Glucose Point of Care 175 mg/dl (65-105)
--- NOTE | 2023-03-16 12:44 | PM.PNCARD ---
Progress Note: A&P Assessment and Plan (1) Left bundle branch block: Code(s): I44.7 - Left bundle-branch block, unspecified Status: Acute Assessment and Plan: Possibly ischemic. 2D echocardiogram Doppler is ordered and will be reviewed. Will eventually need ischemic evaluation (2) New onset of congestive heart failure: Code(s): I50.9 - Heart failure, unspecified Status: Acute Assessment and Plan: Probably mixed diastolic and systolic in etiology. Continue furosemide 20 mg p.o. daily. Will start Toprol-XL 25 mg p.o. daily. Continue irbesartan for now. Further recommendations to follow review of echo. (3) Hyperlipidemia associated with type 2 diabetes mellitus: Code(s): E11.69 - Type 2 diabetes mellitus with other specified complication; E78.5 - Hyperlipidemia, unspecified Status: Acute Assessment and Plan: Continue statin and will check a lipid panel. 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 Will await echo before making decision regarding ischemic evaluation (stress test versus catheterization) Subjective Date/time seen: 03/16/23 12:44 Interval history: Cardiology follow up for CHF, elevated troponin Feeling well today. States she had some right sided chest tightness this morning that resolved after using her inhaler. No shortness of breath. Swelling has resolved Review of Systems Review of Systems: All systems reviewed & are unremarkable except as noted in HPI and below Constitutional: Constitutional: Denies body ache(s) and Denies excessive sweating Eyes: Eyes: Denies blurry vision ENT: Reports Normal hearing present Cardiovascular: Cardiovascular: Reports chest pain and Reports dyspnea Respiratory: Respiratory: Reports dyspnea Gastrointestinal: Gastrointestinal: Denies abdominal pain Genitourinary: Genitourinary: Denies hematuria Musculoskeletal: Musculoskeletal: Reports back pain Integumentary/Breasts: Skin/Breast: Denies skin pain and Reports wounds Neurologic: Reports Normal hearing present and Denies Abnormal speech present Psychiatric: Psychiatric: Denies anxiety Endocrine: Endocrine: Denies excessive sweating Hematologic/Lymphatic: Hematologic/Lymphatic: Denies easy bleeding Allergic/Immunologic: Allergic/Immunologic: Denies GI upset with certain foods Exam Narrative: Awake alert oriented appears stated age Const: General: comfortable and no acute distress HENMT: Face/Nose/Sinus: Normal nares present Mouth: Yes moist mucous membranes Eyes: General: appearance normal, both eyes and all related structures Sclera: sclerae normal Neck: Neck: supple and no JVD Carotids: no bruits Chest: Other: No reproducible chest wall pain to palpation Resp: Effort & Inspection: normal respiratory effort Auscultation: clear to auscultation bilaterally Cardio: Rate: regular rate Rhythm: regular rhythm Heart sounds: no murmurs GI: Inspection: non-distended Auscultation: normal bowel sounds Skin: General skin exam: normal color and no rashes or lesions noted Neuro: Cranial nerves: Yes Normal hearing present Speech: normal speech and No Abnormal speech present
[2023-03-16 16:53] LABS: Glucose Point of Care 137 mg/dl (65-105)
[2023-03-16] MEDS: LORazepam (*CRX) 0.5 MG TABLET PO (18:40)
[2023-03-16] MEDS: SIMVASTATIN 20 MG TABLET PO (20:23)
[2023-03-16] MEDS: SULFAMETHOXAZOLE/TRIMETHOPRIM 800/160 MG DS TABLET 1 TAB PO (20:23)
[2023-03-16] MEDS: IRBESARTAN 150 MG TABLET 300 MG PO (20:23)
[2023-03-16] MEDS: SERTRALINE HCL 25 MG TABLET PO (20:23)
[2023-03-16 20:55] LABS: Glucose Point of Care 145 mg/dl (65-105)
--- NOTE | 2023-03-16 22:56 | PC.NURSE ---
Called hospitalist, Missy Laboy, @2029 to ask if pt should have scheduled 60 units of Lantus for 2100. Pt is scheduled for a cardiac cath tomorrow and will be NPO by 0000 tonight. Pt's blood sugar for tonight was 145. Hospitalist unsure about what to do since this is pt's usual home dose. Hospitalist asked me to call the other hospitalist for tonight, Dr. Washington, to see what to do. Called Dr. Washington initially @2036 but received no response. Dr. Washington called back but I was unable to answer. Called Dr. Washington again @ 2049 and explained pt's situation. Dr. Washington ordered to hold Lantus for tonight.
[2023-03-17] VITALS (22 sets, daily range): BP systolic 102–127; BP diastolic 46–64; PULSE 64–94; RESP 16–20; TEMP 36.2–37.3; O2SAT 94–100
[2023-03-17] MEDS: metroNIDAZOLE 500 MG/ISO 100ML 500 MG/100 ML BAG 100 MG IVPB ×3 (05:05→22:12)
[2023-03-17 07:49] LABS: Glucose Point of Care 152 mg/dl (65-105)
--- NOTE | 2023-03-17 07:56 | P.CDI_ITS ---
* There is a cause and effect relationship between cellulitis and diabetes mellitus. CDI Query Clarification Request Please clarify if there is a cause and effect relationship between Cellulitis and Diabetes mellitus. * There is a cause and effect relationship between cellulitis and diabetes mellitus. * There is not a cause and effect relationship between cellulitis and diabetes mellitus. * Unknown if there is a cause and effect relationship between cellulitis and diabetes mellitus.
--- NOTE | 2023-03-17 07:56 | WPDCDIQUERY2 ---
CDI Query Clarification Request Please clarify if there is a cause and effect relationship between Cellulitis and Diabetes mellitus. There is a cause and effect relationship between cellulitis and diabetes mellitus. There is not a cause and effect relationship between cellulitis and diabetes mellitus. Unknown if there is a cause and effect relationship between cellulitis and diabetes mellitus.
[2023-03-17] MEDS: FUROSEMIDE 20 MG TABLET PO (07:59)
[2023-03-17] MEDS: METOPROLOL SUCCINATE EXT REL 25 MG TABCR PO (07:59)
[2023-03-17] MEDS: SILVERGEL (ELTA) 45 ML 1 APPLIC TOPICAL (08:01)
[2023-03-17] MEDS: LORATADINE 10 MG TABLET PO (08:01)
[2023-03-17] MEDS: SULFAMETHOXAZOLE/TRIMETHOPRIM 800/160 MG DS TABLET 1 TAB PO ×2 (08:06→22:11)
[2023-03-17] MEDS: ALBUTEROL SULFATE (*SP) AEROSOL 1 PUFF 2 PUFF INHALATION ×4 (08:46→21:40)
[2023-03-17 11:53] LABS: Glucose Point of Care 153 mg/dl (65-105)
[2023-03-17] MEDS: ACETAMINOPHEN 325 MG TABLET 650 MG PO (13:32)
--- NOTE | 2023-03-17 14:30 | PC.NURSE ---
To [facility] for cardiac catheter procedure.
--- NOTE | 2023-03-17 14:49 | PM.IMPN ---
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 without evidence of necrosis Code(s): E11.621 - Type 2 diabetes mellitus with foot ulcer; L97.509 - Non-pressure chronic ulcer of other part of unspecified foot with unspecified severity Status: Acute (2) Urinary tract infection: Qualifiers: Hematuria presence: without hematuria Urinary tract infection type: acute cystitis Qualified Code(s): N30.00 - Acute cystitis without hematuria Code(s): N39.0 - Urinary tract infection, site not specified Status: Acute (3) Pulmonary edema: Qualifiers: Chronicity: acute Qualified Code(s): J81.0 - Acute pulmonary edema Code(s): J81.1 - Chronic pulmonary edema Status: Acute (4) URI (upper respiratory infection): Qualifiers: URI type: unspecified viral URI Qualified Code(s): J06.9 - Acute upper respiratory infection, unspecified Code(s): J06.9 - Acute upper respiratory infection, unspecified Status: Acute (5) Cellulitis: Qualifiers: Laterality: left Site of cellulitis: extremity Site of cellulitis of extremity: lower extremity Qualified Code(s): L03.116 - Cellulitis of left lower limb Code(s): L03.90 - Cellulitis, unspecified Status: Acute (6) Chest pain: Code(s): R07.9 - Chest pain, unspecified Status: Acute (7) Shortness of breath: Code(s): R06.02 - Shortness of breath Status: Acute (8) Diabetes mellitus with hyperglycemia: Code(s): E11.65 - Type 2 diabetes mellitus with hyperglycemia Status: Acute (9) Hyperlipidemia: Code(s): E78.5 - Hyperlipidemia, unspecified Status: Acute (10) Obesity: Code(s): E66.9 - Obesity, unspecified Status: Acute Plan Left lower leg cellulitis with diabetic foot ulcer left great toe wound Care will be consulted may need some debridement consulted general surgery.. Continue IV antibiotics. X-ray negative for osteomyelitis. Wound culture growing MSSA. doxycycline for 7/10 more days Congestive heart failure newly diagnosed BNP mildly elevated. Chest x-ray with interstitial edema. Mild troponin leak flat. Echo ordered. Lasix mild volume overload still present. Venous duplex negative for DVT. cardiology consulted. ECHo showed EF 30-35%, grade I diastolic dysfunction. PASP 52 Awaiting cardiac cath today cardiology following Left bundle branch block noted on EKG which is chronic Type 2 diabetes on insulin Accu-Chek monitor and adjust as needed Hypertension Hyperlipidemia History of kidney stones Asthma DVT prophylaxis Lovenox UTI UA positive Elevated D-dimer CTA no of PE Code status full code Subjective Date/time seen: 03/17/23 14:49 Interval history: Comfortable at bedside, awaiting cardiac cath Review of Systems Review of Systems: No sweating, palpitations, fever rigor chills, nausea vomiting, loss of consciousness or blurred vision All systems reviewed & are unremarkable except as noted in HPI and below Exam Narrative: General physical exam: obese white female, lying in bed, not in acute distress Head/eyes: Atraumatic, EOMI, PERRLA ENT: Moist mucous membranes, nasal passages clear Neck: Supple, full range of motion, trachea midline CVS: S1 + S2, regular rate and rhythm, no murmurs Respiratory: Bilaterally fair air entry in both lung zeng, no wheezes or rhonchi Abdomen: Soft, non-tender, bowel sounds +ve, no organomegaly Extremities: No clubbing, no cyanosis, +1 bilateral pitting edema, no calf tenderness Musculoskeletal: Moves all, adequa
--- NOTE | 2023-03-17 15:46 | WPDHPUPDATE1 ---
History and Physical Update Update Date/Time: 03/17/23 15:46 History and Physical has been reviewed, including an updated exam of the patient. There are NO changes in the patient's condition. Risks, benefits, and alternatives have been discussed and questions answered. Patient agrees to proceed with procedure.
--- NOTE | 2023-03-17 15:46 | WPDMODSED ---
Moderate Sedation Note-Pt Data Patient Data Diagnosis: Heart failure with reduced ejection fraction Present Complaint: Heart failure with reduced ejection fraction Procedure to be performed/Plan: Coronary angiography, left heart cath Allergies Allergy/AdvReac Type Severity Reaction Status Date / Time ampicillin Allergy Unknown Difficulty Verified 03/13/23 21:47 Breathing aspirin Allergy Unknown Difficulty Verified 03/13/23 21:47 Breathing codeine Allergy Unknown Difficulty Verified 03/13/23 21:47 Breathing Penicillins Allergy Unknown Difficulty Verified 03/13/23 21:47 Breathing Home Medications Medication Instructions Recorded Confirmed Type simvastatin 20 mg tablet 20 mg PO HS 08/28/20 03/13/23 History albuterol 90 mcg/actuation aerosol 2 mcg inhalation QID 11/07/20 03/13/23 History inhaler glipizide 10 mg tablet, extended 20 mg PO DAILY 11/07/20 03/13/23 History release 24 hr (Glucotrol XL) insulin glargine 100 unit/mL (3 60 unit subcut HS 11/07/20 03/13/23 History mL) subcutaneous pen (Basaglar KwikPen U-100 Insulin) loratadine 10 mg tablet (Claritin) 10 mg PO DAILY 60 days #60 tabs 11/07/20 03/13/23 Rx lurasidone 120 mg tablet (Latuda) 120 mg PO HS 11/07/20 03/13/23 History tramadol 50 mg tablet 50 mg PO Q4H PRN pain #30 tabs 01/06/22 03/13/23 Rx fluticasone propionate 50 1 spray intranasal BID PRN 03/13/23 03/13/23 History mcg/actuation nasal Congestion spray,suspension (Allergy Relief (fluticasone)) irbesartan 300 mg tablet 300 mg PO HS 03/13/23 03/13/23 History sertraline 25 mg tablet 25 mg PO HS 03/13/23 03/13/23 History Current Medications: Active Medications Acetaminophen (Acetaminophen 325 Mg Tablet) 650 mg PO Q4H PRN PRN Reason: Mild Pain (1-3) or Fever Last Admin: 03/17/23 13:32 Dose: 650 mg Al Hydrox/Mg Hydrox/Simethicone (Mag Hydrox/Al Hydrox/Simeth 30 Ml Udc) 30 ml PO QID PRN PRN Reason: Dyspepsia Albuterol (Albuterol Sulfate (*Sp) Aerosol 1 Puff) 2 puff INHALATION QIDRT [facility] Last Admin: 03/17/23 12:26 Dose: 2 puff Dextrose (Dextrose 50% 25 Gm/50 Ml Syringe) 12.5 gm IV PUSH PRN PRN; Protocol PRN Reason: Hypoglycemia Doxycycline Hyclate (Doxycycline Hyclate 100 Mg Tablet) 100 mg PO Q12HR [place] Enoxaparin Sodium (Enoxaparin 40 Mg/0.4 Ml Syringe) 40 mg SUB-Q DAILY [facility] Last Admin: 03/16/23 09:47 Dose: 40 mg Fluticasone Propionate (Fluticasone Propionate 0.05% Na Spr 16 Gm Btl (*Bkc)) 1 spray NASAL BID PRN PRN Reason: Congestion Furosemide (Furosemide 20 Mg Tablet) 20 mg PO DAILY [facility] Last Admin: 03/17/23 07:59 Dose: 20 mg Glipizide (Glipizide Xl 5 Mg Tabcr) 20 mg PO DAILY [facility] Last Admin: 03/17/23 08:01 Dose: Not Given Glucagon (Glucagon For Inj 1 Mg Vial) 1 mg IM PRN PRN; Protocol PRN Reason: Hypoglycemia Glucose (Glucose Oral Gel 15 Gm Of Glucse In 37.5 Gm Tube) 15 gm PO PRN PRN; Protocol PRN Reason: Hypoglycemia Last Admin: 03/15/23 21:26 Dose: 15 gm Metronidazole (Flagyl 500 Mg/Iso Soln 100 Ml) 500 mg in 100 mls @ 100 mls/hr IVPB Q8H [facility] Last Infusion: 03/17/23 12:59 Dose: Infused Dextrose (Dextrose 5% 1,000 Ml) 1,000 mls @ 100 mls/hr IVPB PRN PRN; Protocol PRN Reason: Hypoglycemia Sodium Chloride (Normal Saline Iv) 1,000 mls @ 125 mls/hr IV CONT .Q8H ONE Stop: 03/17/23 23:43 Insulin Aspart (Insulin Aspart (*Bkc) 100 Units/Ml) 2 - 5 units SUB-Q TIDWM [facility]; Protocol Last Admin: 03/17/23 11:55 Dose: Not Given Insulin Aspart (Insulin Aspart (*Bkc) 100 Units/Ml) 1 - 2 units SUB-Q HS [facility]; Protocol Last Admin: 03/16/23 20:25 Dose: Not Given Insulin Glargine (Insulin Glargine (*Bkc) 100 Units/Ml) 60 units SUB-Q HS [facility] Last Admin: 03/16/23 20:52 Dose: Not Given Irbesartan (Irbesartan 150 Mg Tablet) 300 mg PO HS [facility] Last Admin: 03/16/23 20:23 Dose: 300 mg Loratadine (Loratadine 10 Mg Tablet) 10 mg PO DAILY [facility] Last Admin: 03/17/23 08:01 Dose: 10 mg Metoprolol Succinate (Metoprolol Succinate Ext
--- NOTE | 2023-03-17 15:47 | WPDCARDPROC ---
Cardiac Cath Procedure Note Date of procedure:: 03/17/23 Performing physician:: CATHETERIZATION LABORATORY REPORT Procedure Date: 03/17/2023 Town Administrator: Hakeem Kirkpatrick M.D., [facility]? Referring Physician: Hakeem Kirkpatrick M.D. ? Anesthesia: Versed and Fentanyl were ordered and given in my presence at 15:11, procedure ended at 15:40. Supervision of nurse monitored moderate sedation with Versed and Fentanyl was provided for 29 minutes. Total of Versed 2mg and Fentanyl 50mcg were administered by the Barge Master RN Nicole Thomson. Pre-op Diagnosis: Coronary artery disease Post-op Diagnosis: 1. Non obstructive coronary arteries 2. Left ventricular end-diastolic pressure of 16mmHg Procedure(s): 1. Moderate sedation 2. Ultrasound-guided access of the right common femoral artery 3. Coronary angiography 4. Left heart cath 5. Angioseal closure of the right common femoral artery Access Site: Right common femoral artery Brief History and Clinical Indications: Patient is a 72 year old female who is referred for [facility] for ischemic evaluation for new diagnosis of heart failure with reduced ejection fraction. All risks, benefits and alternatives to left heart catheterization with or without percutaneous coronary intervention was discussed at length with the patient. Risk of complications including but not limited to bleeding, infection, arrhythmia, stroke, worsening kidney function, blood loss, groin hematoma, limb loss, emergency coronary artery bypass grafting, and even were discussed with the patient and all questions were answered. The patient understood and wished to proceed. Time out called, patient name, date of , medical record number, allergies, procedure performed, identify Town Administrator, patient and staff member concurred with accurate data, procedure carried on. Findings: LEFT HEART CATHETERIZATION FINDINGS: 1. Left main: The left main coronary artery is widely patent without any significant obstructive disease. 2. Left anterior descending: The LAD and the diagonal branches have mild luminal irregularities without any significant obstructive angiographic disease. 3. Left circumflex: The left circumflex is the dominant vessel. The left circumflex artery and the main marginal branches have mild luminal irregularities without any significant obstructive angiographic disease. 4. Right coronary artery: Small caliber vessel. The RCA has mild luminal irregularities without any significant obstructive angiographic disease. The RCA is the non-dominant vessel. 5. Left ventricle: A. End-diastolic pressure 16 mmHg. B. LV gram deferred. C. No significant gradient across aortic valve on catheter pullback. Description of Procedure: Informed consent signed and placed in the chart. Patient transferred to cath lab nurse room. Prepped and draped in usual sterile fashion. 2% lidocaine in right groin area. Micropuncture needle used to access right common femoral artery with Seldinger technique under fluoroscopic and ultrasound guidance. J wire advanced, micropuncture cannula placed. Right iliofemoral angiogram performed which showed a high stick, therefore, micropuncture cannula removed and manual pressure was applied to achieve hemostasis. Micropuncture needle used again to access RCFA under fluoroscopic and ultrasound guidance. Right iliofemoral angiogram performed, access confirmed and micropuncture cannula exchanged for 5-FR sheath. 5F FL 4 diagnostic catheter engaged Left Main Coronary Artery. 5F FR 4 diagnostic catheter engaged Right Coronary Artery. Multiple orthogonal angiogram obtained and reviewed 5F Pigtail diagnostic catheter crossed aortic valve to obtain LVEDP, LV angiogram deferred. Hemostasis was achieved by 6F Angioseal. ? Assessment: 1. Non obstructive coronary arteries 2. Left ventricular end-diastolic pressure of 16mmHg Post Operative Condition: Stable No significant blood loss Disposition: Floor Plan: The jeb
[2023-03-17] MEDS: SODIUM CHLORIDE 0.9% IV 1,000 ML 125 ML IV CONT (16:00)
[2023-03-17 17:12] LABS: Glucose Point of Care 144 mg/dl (65-105)
[2023-03-17 22:02] LABS: Glucose Point of Care 152 mg/dl (65-105)
[2023-03-17] MEDS: INSULIN GLARGINE (*BKC) 100 UNITS/ML 60 UNITS SUB-Q (22:09)
[2023-03-17] MEDS: IRBESARTAN 150 MG TABLET 300 MG PO (22:10)
[2023-03-17] MEDS: DOXYCYCLINE HYCLATE 100 MG TABLET PO (22:10)
[2023-03-17] MEDS: SERTRALINE HCL 25 MG TABLET PO (22:11)
[2023-03-17] MEDS: SIMVASTATIN 20 MG TABLET PO (22:11)
[2023-03-17] MEDS: traMADol HCL (*CRX) 50 MG TABLET PO (22:11)
[2023-03-17] MEDS: MAG HYDROX/AL HYDROX/SIMETH 30 ML UDC PO (23:30)
[2023-03-18] VITALS (12 sets, daily range): BP systolic 108–133; BP diastolic 47–70; PULSE 68–83; RESP 18; TEMP 36.3–37.4; O2SAT 95–100
[2023-03-18] MEDS: metroNIDAZOLE 500 MG/ISO 100ML 500 MG/100 ML BAG 100 MG IVPB ×2 (06:06→14:36)
[2023-03-18 06:09] LABS: Basophils Absolute Auto 0.1 K/mm3 (0.0-0.1); Basophils Percent Auto 0.7 % (0.2-1.2); Eosinophils Absolute Auto 0.3 K/mm3 (0-0.3); Eosinophils Percent Auto 3.5 % (0-4.4); Hematocrit 37.3 % (37.0-47.0); Hemoglobin 12.7 g/dL (12.0-15.0); Immature Granulocyte Absolute 0.03 K/mm3 (0.00-0.031); Immature Granulocyte Percent A 0.4 % (0-0.5); Lymphocytes Absolute Auto 1.83 K/mm3 (0.9-3.2); Lymphocytes Percent Auto 22.1 % (18.3-44.2); Mean Corpuscular Hemoglobin 34.3 pg (26-34); Mean Corpuscular Volume 100.8 fl (80-100); Mean Platelet Volume 8.9 fl (7.4-10.4); Monocytes Absolute Auto 0.7 K/mm3 (0.1-0.6); Monocytes Percent Auto 8.5 % (2.6-8.5); Neutrophils Absolute Auto 5.4 K/mm3 (1.3-6.7); Neutrophils Percent Auto 64.8 % (45.5-73.1); Platelet Count Result 292 k/mm3 (150-375); Red Cell Distribution Width 13.2 % (11.5-14.5); White Blood Count 8.3 K/mm3 (4.5-10.0)
[2023-03-18 06:17] LABS: Alanine Aminotransferase 96 U/L (6-35); Albumin Level 3.9 g/dL (3.5-5.1); Alkaline Phosphatase 136 U/L (38-126); Anion Gap 5 mmol/L (8-16); Aspartate Amino Transferase 153 U/L (14-36); Bilirubin,Total 0.5 mg/dL (0.2-1.3); Blood Urea Nitrogen 15 mg/dL (7-17); Calcium 8.5 mg/dL (8.4-10.2); Carbon Dioxide 29 mmol/L (22-30); Chloride 97 mmol/L (98-107); Estimated CRCL calculation 43 ml/min; Estimated Glomerular Filt Rate 49; Glucose 135 mg/dL (65-110); Magnesium 2.1 mg/dL (1.6-2.3); Potassium 4.4 mmol/L (3.4-5.0); Sodium 131 mmol/L (137-145)
[2023-03-18 06:21] LABS: Lactic Acid Reflex 0.9 mmol/L (0.7-2.0)
[2023-03-18] MEDS: ALBUTEROL SULFATE (*SP) AEROSOL 1 PUFF 2 PUFF INHALATION ×3 (07:44→15:21)
[2023-03-18 08:03] LABS: Glucose Point of Care 141 mg/dl (65-105)
[2023-03-18] MEDS: METOPROLOL SUCCINATE EXT REL 25 MG TABCR PO (08:22)
[2023-03-18] MEDS: FUROSEMIDE 20 MG TABLET PO (08:23)
[2023-03-18] MEDS: DOXYCYCLINE HYCLATE 100 MG TABLET PO (08:23)
[2023-03-18] MEDS: glipiZIDE XL 5 MG TABCR 20 MG PO (08:23)
[2023-03-18] MEDS: LORATADINE 10 MG TABLET PO (08:23)
[2023-03-18] MEDS: SULFAMETHOXAZOLE/TRIMETHOPRIM 800/160 MG DS TABLET 1 TAB PO (08:23)
--- NOTE | 2023-03-18 09:12 | PM.IMPN ---
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 without evidence of necrosis Code(s): E11.621 - Type 2 diabetes mellitus with foot ulcer; L97.509 - Non-pressure chronic ulcer of other part of unspecified foot with unspecified severity Status: Acute (2) Urinary tract infection: Qualifiers: Hematuria presence: without hematuria Urinary tract infection type: acute cystitis Qualified Code(s): N30.00 - Acute cystitis without hematuria Code(s): N39.0 - Urinary tract infection, site not specified Status: Acute (3) Pulmonary edema: Qualifiers: Chronicity: acute Qualified Code(s): J81.0 - Acute pulmonary edema Code(s): J81.1 - Chronic pulmonary edema Status: Acute (4) URI (upper respiratory infection): Qualifiers: URI type: unspecified viral URI Qualified Code(s): J06.9 - Acute upper respiratory infection, unspecified Code(s): J06.9 - Acute upper respiratory infection, unspecified Status: Acute (5) Cellulitis: Qualifiers: Laterality: left Site of cellulitis: extremity Site of cellulitis of extremity: lower extremity Qualified Code(s): L03.116 - Cellulitis of left lower limb Code(s): L03.90 - Cellulitis, unspecified Status: Acute (6) Chest pain: Code(s): R07.9 - Chest pain, unspecified Status: Acute (7) Shortness of breath: Code(s): R06.02 - Shortness of breath Status: Acute (8) Diabetes mellitus with hyperglycemia: Code(s): E11.65 - Type 2 diabetes mellitus with hyperglycemia Status: Acute (9) Hyperlipidemia: Code(s): E78.5 - Hyperlipidemia, unspecified Status: Acute (10) Obesity: Code(s): E66.9 - Obesity, unspecified Status: Acute Plan Left lower legv cellulitis with diabetic foot ulcer left great toe wound Care will be consulted may need some debridement consulted general surgery.. Continue IV antibiotics. X-ray negative for osteomyelitis. Wound culture growing MSSA. doxycycline for 7/10 more days Per general surgeon, no indication for any surgical intervention. General surgeon sign off at this time. Patient can follow-up with her Battery Technician after discharge for continued care. She has an appointment with her Battery Technician on Mar 29. Congestive heart failure newly diagnosed BNP mildly elevated. Chest x-ray with interstitial edema. Mild troponin leak flat. Echo ordered. Lasix mild volume overload still present. Venous duplex negative for DVT. cardiology consulted. ECHo showed EF 30-35%, grade I diastolic dysfunction. PASP 52 cardiac cath reveals no obstructive coronary arteries cardiology following Left bundle branch block noted on EKG which is chronic Patient denies shortness breath, feels tired Type 2 diabetes on insulin Accu-Chek monitor and adjust as needed Hypertension Hyperlipidemia History of kidney stones Asthma DVT prophylaxis Lovenox UTI UA positive Elevated D-dimer CTA no of PE Code status full code Discharge patient depends on customer success representative plan Subjective Date/time seen: 03/18/23 09:12 Interval history: I saw on exam patient today, patient denies chest pain, fever, chills, shortness breast abdomen pain nausea vomiting diarrhea dysuria. Cardiac catheterization yesterday shows patent coronary arteries Exam Narrative: General physical exam: obese white female, lying in bed, not in acute distress Head/eyes: Atraumatic, EOMI, PERRLA ENT: Moist mucous membranes, nasal passages clear Neck: Supple, full range of motion, trachea midline CVS: S1 + S2, re
--- NOTE | 2023-03-18 10:48 | PM.DS ---
DS: Admitting Diagnosis Discharge Date 03/18/23 Admitting Diagnosis (1) Diabetic foot ulcer: ?Qualifiers: ?Diabetes mellitus type:?type 2??Diabetic foot ulcer location:?toe??Laterality:?left??Non-pressure ulcer stage:?with muscle involvement without evidence of necrosis? 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 Qualified Code(s):?N30.00 - Acute cystitis without hematuria ?Code(s): N39.0 - Urinary tract infection, site not specified ?Status:?Acute (3) Pulmonary edema: ?Qualifiers: ?Chronicity:?acute? Qualified Code(s):?J81.0 - Acute pulmonary edema ?Code(s): J81.1 - Chronic pulmonary edema ?Status:?Acute (4) URI (upper respiratory infection): ?Qualifiers: ?URI type:?unspecified viral URI? Qualified Code(s):?J06.9 - Acute upper respiratory infection, unspecified ?Code(s): J06.9 - Acute upper respiratory infection, unspecified ?Status:?Acute (5) Cellulitis: ?Qualifiers: ?Laterality:?left??Site of cellulitis:?extremity??Site of cellulitis of extremity:?lower extremity? Qualified Code(s):?L03.116 - Cellulitis of left lower limb ?Code(s): L03.90 - Cellulitis, unspecified ?Status:?Acute (6) Chest pain: ?Code(s): R07.9 - Chest pain, unspecified ?Status:?Acute (7) Shortness of breath: ?Code(s): R06.02 - Shortness of breath ?Status:?Acute (8) Diabetes mellitus with hyperglycemia: ?Code(s): E11.65 - Type 2 diabetes mellitus with hyperglycemia ?Status:?Acute (9) Hyperlipidemia: ?Code(s): E78.5 - Hyperlipidemia, unspecified ?Status:?Acute (10) Obesity: ?Code(s): E66.9 - Obesity, unspecified ?Status:?Acute DS: Discharge Diagnosis Discharge Diagnosis (1) Diabetic foot ulcer: Qualifiers: Diabetes mellitus type: type 2 Diabetic foot ulcer location: toe Laterality: left Non-pressure ulcer stage: with muscle involvement without evidence of necrosis Qualified Code(s): E11.621 - Type 2 diabetes mellitus with foot ulcer; L97.525 - 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 involvement without evidence of necrosis Code(s): E11.621 - Type 2 diabetes mellitus with foot ulcer; L97.509 - Non-pressure chronic ulcer of other part of unspecified foot with unspecified severity Status: Acute (2) Urinary tract infection: Qualifiers: Hematuria presence: without hematuria Urinary tract infection type: acute cystitis Qualified Code(s): N30.00 - Acute cystitis without hematuria Code(s): N39.0 - Urinary tract infection, site not specified Status: Acute (3) Pulmonary edema: Qualifiers: Chronicity: acute Qualified Code(s): J81.0 - Acute pulmonary edema Code(s): J81.1 - Chronic pulmonary edema Status: Acute (4) URI (upper respiratory infection): Qualifiers: URI type: unspecified viral URI Qualified Code(s): J06.9 - Acute upper respiratory infection, unspecified Code(s): J06.9 - Acute upper respiratory infection, unspecified Status: Acute (5) Cellulitis: Qualifiers: Laterality: left Site of cellulitis: extremity Site of cellulitis of extremity: lower extremity Qualified Code(s): L03.116 - Cellulitis of left lower limb Code(s): L03.90 - Cellulitis, unspecified Status: Acute (6) Chest pain: Code(s): R07.9 - Chest pain, unspecified Status: Acute (7) Shortness of breath: Code(s): R06.02 -
[2023-03-18 11:44] LABS: Glucose Point of Care 188 mg/dl (65-105)
[2023-03-18 17:22] LABS: Glucose Point of Care 171 mg/dl (65-105)
== END 2023-03-18 19:00 | disposition home health service (06) | DRG 192 ==
LOC: ANHED 20:24 → ANH2MED 21:11
PROVIDERS: Internal Medicine; Internal Medicine Cardiovascular Disease; Admitting Provider Family Medicine; Emergency Provider Physician Assistant; PCP Family Medicine; Visit Provider Family Medicine
PROC: 4A023N7 Measurement of Cardiac Sampling and Pressure, Left Heart, Percutaneous Approach (ICD-10-PCS; CPT 93452; principal; 2023-03-17 13:00)
PROC: 4A023N7 Measurement of Cardiac Sampling and Pressure, Left Heart, Percutaneous Approach (ICD-10-PCS; 2023-03-17 13:00)
DX: I50.41 Acute combined systolic (congestive) and diastolic (congestive) heart failure (principal); E11.621 Type 2 diabetes mellitus with foot ulcer; L03.116 Cellulitis of left lower limb; L97.428 Non-pressure chronic ulcer of left heel and midfoot with other specified severity; E11.628 Type 2 diabetes mellitus with other skin complications; B95.61 Methicillin susceptible Staphylococcus aureus infection as the cause of diseases classified elsewhere; E66.9 Obesity, unspecified; I44.7 Left bundle-branch block, unspecified; N39.0 Urinary tract infection, site not specified; E78.5 Hyperlipidemia, unspecified; R07.9 Chest pain, unspecified; J06.9 Acute upper respiratory infection, unspecified; J45.909 Unspecified asthma, uncomplicated; M19.90 Unspecified osteoarthritis, unspecified site; F32.A Depression, unspecified; Z20.822 Contact with and (suspected) exposure to COVID-19; Z79.4 Long term (current) use of insulin; Z87.442 Personal history of urinary calculi
CPT/HCPCS: 36415; 71045; 71275; 73630; 80048; 80053; 80061; 80202; 81001; 82948; 83036; 83605; 83690; 83735; 83880; 84100; 84484; 85025; 85380; 85610; 85652; 85730; 86140; 87040; 87070; 87086; 87088; 87147; 87181; 87186; 87205; 87636; 87651; 93005; 93458; 93970; 94640; 96361; 96374; 99285; A9270; C1760; C1887; C1894; C8929; G0269; J0692; J1644; J1650; J1815; J1836; J1940; J2250; J3010; J3370; J7030; J7040; Q9957; Q9967

== ENCOUNTER 2023-04-27 12:47 | Outpatient (NON) | payer OTHER, SELFPAY ==
[2023-04-27 13:35] LABS: Appearance Urine Clear (Clear); Bacteria Urine None Seen /hpf; Bilirubin Urine Negative (Negative); Blood Urine Negative (Negative); Color Urine Yellow (Yellow); Glucose Urine UA 2+ mg/dL (Negative); Ketones Urine Negative (Negative); Leukocyte Esterase Ur 2+ LEU/UL (Negative); Need Manual Microscopic Need Manual; Nitrate Urine Negative (Negative); Non Pathogenic Casts 0-2; Protein Urine Negative (Negative); Specific Grav Ur 1.021 (1.001-1.035); Squamous Epithelial Cell Urine Occasional /hpf (Few); Urobilinogen Urine 0.2 mg/dL (<2.0); WBC Clumps Urine Present /HPF; WBC Urine 51-100 /hpf; pH Urine 5.5 (5.0-9.0)
[2023-04-27 13:46] LABS: Add Urine Microscopic? YES
== END 2023-04-27 12:48 | disposition home or self-care (01) ==
LOC: HOME HLTH 12:50
PROVIDERS: PCP Family Medicine; Visit Provider Family Medicine
DX: E11.621 Type 2 diabetes mellitus with foot ulcer (principal); L03.116 Cellulitis of left lower limb; L97.525 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 involvement without evidence of necrosis; N30.00 Acute cystitis without hematuria
CPT/HCPCS: 81001; 87086

== ENCOUNTER 2023-09-19 13:13 | Emergency (ER) | payer OTHER, SELFPAY ==
--- NOTE | ~2023-09-19 | XR_ITS ---
EXAMINATION: XR chest 2V DATE: 09/19/2023 13:51 INDICATION: Cough. TECHNIQUE: Frontal and lateral views of the chest were obtained. COMPARISON: Chest single view 03/13/2023 FINDINGS: There is no pneumonia, pleural effusion, or pneumothorax. The heart size is normal. IMPRESSION: 1. No acute cardiopulmonary disease. Reviewed, dictated and finalized at location E.
[2023-09-19 13:34] VITALS: BP 117/65; PULSE 72; RESP 16; TEMP 36.9; O2SAT 100
--- NOTE | 2023-09-19 14:19 | ED.GENADULT ---
HPI - General Adult General Chief complaint: Upper Respiratory Infection Stated complaint: Sinus/Cough Time Seen by Provider: 09/19/23 13:45 Source: patient Mode of arrival: ambulatory Limitations: no limitations History of Present Illness HPI narrative: Patient presents patient presents for evaluation of sick symptoms for last 3 days. Symptoms include sinus pressure, congestion, frontal headache, thick yellow-green drainage the nares, sore throat, productive cough of yellow-green sputum and pleuritic chest pain. No fever, chills, nausea, vomiting, diarrhea, or shortness of breath. No recent sick contacts to her knowledge. She does not smoke. She has an underlying hx of asthma, CHF, and diabetes. She has not required her albuterol inhaler. Related Data Home Medications Medication Instructions Recorded Confirmed simvastatin 20 mg tablet 20 mg PO HS 08/28/20 09/19/23 albuterol 90 mcg/actuation aerosol 2 mcg inhalation QID 11/07/20 09/19/23 inhaler glipizide 10 mg tablet, extended 20 mg PO DAILY 11/07/20 09/19/23 release 24 hr (Glucotrol XL) insulin glargine 100 unit/mL (3 60 unit subcut HS 11/07/20 09/19/23 mL) subcutaneous pen (Basaglar KwikPen U-100 Insulin) lurasidone 120 mg tablet (Latuda) 120 mg PO HS 11/07/20 09/19/23 fluticasone propionate 50 1 spray intranasal BID PRN 03/13/23 09/19/23 mcg/actuation nasal Congestion spray,suspension (Allergy Relief (fluticasone)) irbesartan 300 mg tablet 300 mg PO HS 03/13/23 09/19/23 sertraline 25 mg tablet 25 mg PO HS 03/13/23 09/19/23 Allergies Allergy/AdvReac Type Severity Reaction Status Date / Time ampicillin Allergy Unknown Difficulty Verified 09/19/23 13:15 Breathing aspirin Allergy Unknown Difficulty Verified 09/19/23 13:15 Breathing codeine Allergy Unknown Difficulty Verified 09/19/23 13:15 Breathing Penicillins Allergy Unknown Difficulty Verified 09/19/23 13:15 Breathing flu vaccines AdvReac Intermediate Diarrhea Uncoded 09/19/23 13:45 Review of Systems Review of Systems: CONSTITUTIONAL: Denies fever, chills, or sweats. EYES: Denies visual changes, redness, or discharge. ENT: reports sinus pressure/ congestion, frontal headache, and sore throat CARDIOVASCULAR: Reports pleuritic chest pain. Denies chest pain otherwise, palpitations, or edema. RESPIRATORY: Reports cough. Denies SOB. GASTROINTESTINAL: Denies abdominal pain, nausea, vomiting, or diarrhea. GENITOURINARY: Denies dysuria or hematuria. SKIN: Denies rash or itching. MUSCULOSKELETAL: Denies back pain, joint pain, or myalgia. NEUROLOGIC: Denies headache, numbness, dizziness, or weakness. PSYCHIATRIC: Denies anxiety or depression. [facility] Past Medical History Medical History Arthritis Asthma Congestive heart failure Depression Diabetes Diabetes mellitus with hyperglycemia Hypercholesteremia Hyperlipidemia Kidney stones Left bundle branch block Obesity Surgical History Surgical History History of cholecystectomy History of dilation and curettage History of knee surgery LT History of tonsillectomy History of tubal ligation Family History Family History Father Family history of cardiovascular disease Diabetes mellitus History of open heart surgery History of renal dialysis Mother Family history of cardiovascular disease Diabetes mellitus History of renal dialysis Sibling Family history of alcoholism Grandparent Family history of arthritis Sibling Family history of mental disorder Sibling Family history of mental disorder Social History Social History Smoking status: Never smoker Tobacco type: cigarettes Second hand tobacco smoke exposure: No Alcohol intake: never Substance use: yoana
== END 2023-09-19 14:15 | disposition home or self-care (01) ==
PROVIDERS: Emergency Provider Nurse Practitioner; PCP Family Medicine
DX: J01.00 Acute maxillary sinusitis, unspecified (principal); Z20.822 Contact with and (suspected) exposure to COVID-19; M19.90 Unspecified osteoarthritis, unspecified site; J45.909 Unspecified asthma, uncomplicated; E11.9 Type 2 diabetes mellitus without complications; E78.00 Pure hypercholesterolemia, unspecified; E78.5 Hyperlipidemia, unspecified; E66.9 Obesity, unspecified; Z68.23 Body mass index [BMI] 23.0-23.9, adult; I50.9 Heart failure, unspecified; Z79.01 Long term (current) use of anticoagulants
CPT/HCPCS: 71046; 87081; 87426; 87804; 87880; 99213; G0463

== ENCOUNTER 2023-12-16 17:49 | Emergency (ER) | payer OTHER, SELFPAY ==
[2023-12-16 18:01] VITALS: BP 134/60; PULSE 72; RESP 18; TEMP 36.6; O2SAT 99
--- NOTE | 2023-12-16 18:04 | ED.EAR ---
HPI - Ear Problem General Chief complaint: Ear Stated complaint: Ears Irritation Time Seen by Provider: 12/16/23 18:04 History of Present Illness HPI Narrative: Patient presents with complaints of sinus pain and pressure, ear pain, intermittent fever for 2-3 weeks. She has been taking Tylenol with fair relief for her symptoms. She reports that she is concerned because symptoms are not getting any better. She denies any shortness of breath. She voices no other concerns or complaints today. Related Data Home Medications Medication Instructions Recorded Confirmed simvastatin 20 mg tablet 20 mg PO HS 08/28/20 12/16/23 glipizide 10 mg tablet, extended 20 mg PO DAILY 11/07/20 12/16/23 release 24 hr (Glucotrol XL) insulin glargine 100 unit/mL (3 60 unit subcut HS 11/07/20 12/16/23 mL) subcutaneous pen (Basaglar KwikPen U-100 Insulin) lurasidone 120 mg tablet (Latuda) 120 mg PO HS 11/07/20 12/16/23 fluticasone propionate 50 1 spray intranasal BID PRN 03/13/23 12/16/23 mcg/actuation nasal Congestion spray,suspension (Allergy Relief (fluticasone)) irbesartan 300 mg tablet 300 mg PO HS 03/13/23 12/16/23 sertraline 25 mg tablet 25 mg PO HS 03/13/23 12/16/23 albuterol sulfate 90 mcg/actuation 2 puff inhalation QID PRN WHEEZES 12/16/23 12/16/23 aerosol inhaler Allergies Allergy/AdvReac Type Severity Reaction Status Date / Time ampicillin Allergy Unknown Difficulty Verified 12/16/23 18:00 Breathing aspirin Allergy Unknown Difficulty Verified 12/16/23 18:00 Breathing codeine Allergy Unknown Difficulty Verified 12/16/23 18:00 Breathing Penicillins Allergy Unknown Difficulty Verified 12/16/23 18:00 Breathing flu vaccines AdvReac Intermediate Diarrhea Uncoded 12/16/23 18:00 Review of Systems Review of Systems: All systems reviewed & are unremarkable except as noted in HPI and below Constitutional: Constitutional: Reports no additional constitutional complaints and Reports fever(s) ENT: Reports system reviewed and no additional complaints, except as documented, Reports otalgia, Reports facial pain, Reports nasal congestion, Reports nasal discharge, Reports post nasal drip and Reports throat swelling Cardiovascular: Cardiovascular: Reports no additional cardiovascular complaints Respiratory: Respiratory: Reports no additional respiratory complaints Gastrointestinal: Gastrointestinal: Reports no additional gastrointestinal complaints [facility] Past Medical History Medical History Arthritis Asthma Congestive heart failure Depression Diabetes Diabetes mellitus with hyperglycemia Hypercholesteremia Hyperlipidemia Kidney stones Left bundle branch block Obesity Surgical History Surgical History History of cholecystectomy History of dilation and curettage History of knee surgery LT History of tonsillectomy History of tubal ligation Family History Family History Father Family history of cardiovascular disease Diabetes mellitus History of open heart surgery History of renal dialysis Mother Family history of cardiovascular disease Diabetes mellitus History of renal dialysis Sibling Family history of alcoholism Grandparent Family history of arthritis Sibling Family history of mental disorder Sibling Family history of mental disorder Social History Social History Smoking status: Never smoker Tobacco type: cigarettes Second hand tobacco smoke exposure: No Alcohol intake: never Substance use: never Substance use type: does not use Lack of Transportation: No Lack of Food: Never True Current Housing: I Have Housing Concerned About Future Housing: No Difficulty Paying Gas/Electric Bills: No Difficulty Paying for Meds: No Currently Un
== END 2023-12-16 18:25 | disposition home or self-care (01) ==
PROVIDERS: Emergency Provider Nurse Practitioner Family; PCP Family Medicine
DX: J01.00 Acute maxillary sinusitis, unspecified (principal); Z20.822 Contact with and (suspected) exposure to COVID-19; M19.90 Unspecified osteoarthritis, unspecified site; J45.909 Unspecified asthma, uncomplicated; E11.9 Type 2 diabetes mellitus without complications; Z79.4 Long term (current) use of insulin; E78.00 Pure hypercholesterolemia, unspecified; E78.5 Hyperlipidemia, unspecified; E66.9 Obesity, unspecified; Z68.23 Body mass index [BMI] 23.0-23.9, adult; I50.9 Heart failure, unspecified; F32.A Depression, unspecified
CPT/HCPCS: 87426; 99213; G0463

== ENCOUNTER 2024-05-14 17:54 | Emergency (ER) | payer OTHER, SELFPAY ==
[2024-05-14 18:01] VITALS: BP 126/56; PULSE 88; RESP 19; TEMP 37; O2SAT 97
--- NOTE | 2024-05-14 18:11 | ED.URI ---
HPI - URI/Sore Throat General Chief Complaint: Upper Respiratory Infection Stated Complaint: Sinus/Throat Pain Time Seen by Provider: 05/14/24 18:15 Source: patient, RN notes reviewed and old records reviewed Mode of arrival: ambulatory Limitations: no limitations History of Present Illness HPI Narrative: 73-year-old female with a 1 day history sinus congestion, ear pressure, productive cough that is clear phlegm. Reports generalized in the ear, throat area. Denies fevers. Reports occasional runny nose and postnasal drainage. Has not taken anything for her symptoms. Symptoms less than 24 hours. Patient reports concern for flu and COVID. Denies concern for strep Related Data Home Medications Medication Instructions Recorded Confirmed simvastatin 20 mg tablet 20 mg PO HS 08/28/20 05/14/24 glipizide 10 mg tablet, extended 20 mg PO DAILY 11/07/20 05/14/24 release 24 hr (Glucotrol XL) insulin glargine 100 unit/mL (3 60 unit subcut HS 11/07/20 05/14/24 mL) subcutaneous pen (Basaglar KwikPen U-100 Insulin) lurasidone 120 mg tablet (Latuda) 120 mg PO HS 11/07/20 05/14/24 fluticasone propionate 50 1 spray intranasal BID PRN 03/13/23 05/14/24 mcg/actuation nasal Congestion spray,suspension (Allergy Relief (fluticasone)) irbesartan 300 mg tablet 300 mg PO HS 03/13/23 05/14/24 sertraline 25 mg tablet 25 mg PO HS 03/13/23 05/14/24 albuterol sulfate 90 mcg/actuation 2 puff inhalation QID PRN WHEEZES 12/16/23 05/14/24 aerosol inhaler Allergies Allergy/AdvReac Type Severity Reaction Status Date / Time ampicillin Allergy Unknown Difficulty Verified 05/14/24 17:58 Breathing aspirin Allergy Unknown Difficulty Verified 05/14/24 17:58 Breathing codeine Allergy Unknown Difficulty Verified 05/14/24 17:58 Breathing Penicillins Allergy Unknown Difficulty Verified 05/14/24 17:58 Breathing flu vaccines AdvReac Intermediate Diarrhea Uncoded 05/14/24 17:58 Review of Systems Review of Systems: All systems reviewed & are unremarkable except as noted in HPI and below Constitutional: Constitutional: Reports no additional constitutional complaints ENT: Reports as per HPI Cardiovascular: Cardiovascular: Reports no additional cardiovascular complaints, Denies chest pain and Denies dyspnea Respiratory: Respiratory: Reports as per HPI, Denies chest congestion, Reports cough and Denies dyspnea Gastrointestinal: Gastrointestinal: Reports no additional gastrointestinal complaints, Denies abdominal pain, Denies nausea and Denies vomiting Musculoskeletal: Musculoskeletal: Reports no additional musculoskeletal complaints Integumentary/Breasts: Skin/Breast: Reports system reviewed and no additional complaints, except as docu PMFSH Past Medical History Medical History Arthritis Asthma Congestive heart failure Depression Diabetes Diabetes mellitus with hyperglycemia Hypercholesteremia Hyperlipidemia Kidney stones Left bundle branch block Obesity Surgical History Surgical History History of cholecystectomy History of dilation and curettage History of knee surgery LT History of tonsillectomy History of tubal ligation Family History Family History Father Family history of cardiovascular disease Diabetes mellitus History of open heart surgery History of renal dialysis Mother Family history of cardiovascular disease Diabetes mellitus History of renal dialysis Sibling Family history of alcoholism Grandparent Family history of arthritis Sibling Family history of mental disorder Sibling Family history of mental disorder Social History Social History Smoking status: Never smoker Tobacco type: cigarettes Second hand tobacco smoke exposure: No Alcohol intake: never Substance use: never Substance use type: does not use Lack of Transportation: No Lack of Food: Never True Current Housing: I Have Housing Concerned About Future Housing: No Difficulty Paying Gas/Electric Bills: No Difficulty Paying for Meds: No Currently Unemployed: No Education: High School Diploma/GED Difficulty w/ Childcare or Family Care: No Living arrangements: alone Occupation/Education: other Additional occupation/education comments: disable Gender identity (if verbalized by the patient): Female Sexual Orientation (if Verbalized by the Patient): Straight or Heterosexual Spiritual care concerns: No Comments At the time of my signature, I reviewed and agree with the nursing past medical, surgical, social, and family history. There is no relevant family history pertinent to the patient complaint. Exam Const: General: cooperative, healthy appearing, comfortable, no acute distress, well developed, alert and well nourished Nutritional Appearance: well nourished Orientation/consciousness: patient oriented x3 Limitations: no limitations HENMT: Head: normal to inspection Ears: hearing grossly normal bilaterally, external ears normal, Abnormal EAC present excessive cerumen bilateral; no erythema, no edema and no EA tenderness and TM abnormal with fluid behind the TM bilateral Face/Nose/Sinus: Normal external nose present, normal facial exam and face symmetric Face and sinus: normal facial exam and face symmetric Mouth: Yes Normal oral and palatal mucosa present, Yes lip normal and Yes tongue normal Throat: posterior oropharynx normal, uvula midline and no uvular edema Eyes: General: appearance normal, both eyes and all related structures Alignment and Position: alignment normal Periorbital: periorbital findings normal Neck: Neck: normal visual inspection, full ROM, no lymphadenopathy and no meningeal signs Chest: Chest palpation & inspection: normal inspection of the chest Resp: Effort & Inspection: normal respiratory effort and able to speak in complete sentences Auscultation: clear to auscultation bilaterally, no crackles, no rales, no rhonchi and no wheezes Cardio: Rate: regular rate Skin: General skin exam: normal color and no rashes or lesions noted Lesions: no lesions Rashes: no rashes Wounds: no wounds Neuro: General: patient oriented x3, gait normal, tone normal, moves all extremities and no meningeal signs Cognition (Neuro): normal cognition Speech: normal speech Gait exam (Neuro): Normal gait present Extrem: General: normal to inspection, full ROM, capillary refill normal and normal gait Psych: Appearance: grossly normal and well kempt Mental Status: mental status grossly normal Speech and movement: Normal speech and movement present and Clear speech present Affect: normal affect Attitude: cooperative Course Course Level of Care: Express Care Visit Vital Signs Vital signs: Vital Signs Temperature 98.6 F 05/14/24 18:01 Pulse Rate 88 05/14/24 18:01 Respiratory Rate 19 05/14/24 18:01 Blood Pressure 126/56 L 05/14/24 18:01 Pulse Oximetry 97 05/14/24 18:01 Oxygen Delivery Room Air 05/14/24 18:01 Temperature 98.6 F 05/14/24 18:01 Pulse Rate 88 05/14/24 18:01 Respiratory Rate 19 05/14/24 18:01 Blood Pressure 126/56 L 05/14/24 18:01 Pulse Oximetry 97 05/14/24 18:01 Oxygen Delivery Room Air 05/14/24 18:01 Reviewed MDM - URI/Sore Throat MDM Narrative Medical decision making narrative: Patient sitting comfortably in exam room. Nontoxic, vitals stable. Patient in no acute distress. Patient presents with less than 24 hour history of URI symptoms. No acute findings on exam. Flu and COVID negative. Patient appropriate for outpatient treatment and follow-up Discharge instructions reviewed with patient, as well as provided in writing per nursing staff. The instructions also include specific and strict return/GO TO THE ER as well as f/u information. All questions have been answered, and the patient deny any further questions with discharge and discharge plan. Some parts of this dictation were generated by voice recognition software and may contain typographical and/or grammatical inaccuracies. Differential Diagnosis Differential diagnosis: Likely upper respiratory infection, otitis media, sinusitis, viral infection, bronchitis and influenza Lab Data Labs: Lab Results 05/14/24 Range/Units 18:20 POC Influenza A Ag Negative (Negative) POC Influenza B Ag Negative (Negative) POC SARS CoV-2 Ag Negative (Negative) Reviewed Critical Care Time Critical Care Time Critical Care Time: No Discharge Plan Discharge Clinical Impression: Upper respiratory infection Patient Disposition: Home, Self-Care Condition: Stable Instructions: Antibiotic Form Additional Instructions: Your rapid COVID test were negative Your rapid flu test was negative Your symptoms are likely due to a viral illness, which is not treated with antibiotics. Typically viral infections last 7-10 days, can linger for couple of weeks. It is very important to treat your symptoms. Plenty of water, Gatorade, Pedialyte, ice pops or Jell-O. -Alternate Tylenol and Motrin per package directions for fever or pain. You can alternate every 4 hours -Antihistamine medication such as Benadryl at night and Zyrtec/Claritin/Radha during the day can help improve symptoms. -doing daily nasal irrigations can help relieve pressure your sinuses. Things like a Neti pot -Use Flonase twice a day for 5 days then daily to help reduce the inflammation and dry up your sinuses. -You can also use Coricidin HBP or Mucinex. Be sure to drink plenty of water with this medication at least 8 ounces with every dose and it is important to drink 8 to 10 glasses of water per day. Water is a natural decongestant -Eat and drink things that are easy to swallow, like tea or soup, or popsicles. -Oral rinses such as: Salt water gargles and/or may use topical anesthetic (eg. Chloraseptic spray) or lozenges to relieve dryness or throat pain). -Frequent hand washing or hand vanstone machine operator is one of the best ways to prevent spread of infection. -Using a vaporizer or humidifier at night will also help thin secretions and help with coughing up phlegm. -Follow up with primary care provider in 7-10 days if condition is not improving - For new or worsening symptoms go directly to the nearest ER Patient Language: Lao Prescriptions: No Action simvastatin 20 mg tablet 20 mg PO HS glipizide [Glucotrol XL] 10 mg Tablet Extended Release 24hr 20 mg PO DAILY insulin glargine [Basaglar KwikPen U-100 Insulin] 100 unit/mL (3 mL) insulin pen 60 unit SUBCUT HS lurasidone [Latuda] 120 mg Tablet 120 mg PO HS loratadine [Claritin] 10 mg tablet 10 mg PO DAILY 60 Days Qty: 60 0RF albuterol sulfate 90 mcg/actuation Hfa Aerosol Inhaler 2 puff INHALATION QID PRN (Reason: WHEEZES) tramadol 50 mg tablet 50 mg PO Q4H PRN (Reason: pain) Qty: 30 0RF irbesartan 300 mg tablet 300 mg PO HS fluticasone propionate [Allergy Relief (fluticasone)] 50 mcg/actuation spray,suspension 1 spray NASAL BID PRN (Reason: Congestion) Rx Instructions: administer into each nostril sertraline 25 mg tablet 25 mg PO HS furosemide 20 mg Tablet 20 mg PO DAILY Qty: 30 1RF metoprolol succinate [Toprol XL] 25 mg Tablet Extended Release 24 Hr 25 mg PO QAM Qty: 30 0RF Follow-up/Referrals: Jennifer,Sammy Sargent MD [Primary Care Provider] - 1 Week ([facility] care follow up ) Time of Disposition: 18:32
[2024-05-14 18:41] LABS: EDCOVIDSCREEN Negative (Negative); EDINFLUASCREEN Negative (Negative); EDINFLUBSCREEN Negative (Negative)
== END 2024-05-14 18:45 | disposition home or self-care (01) ==
PROVIDERS: Emergency Provider Nurse Practitioner; PCP Family Medicine
DX: J06.9 Acute upper respiratory infection, unspecified (principal); Z20.822 Contact with and (suspected) exposure to COVID-19; I11.0 Hypertensive heart disease with heart failure; I50.9 Heart failure, unspecified; E11.9 Type 2 diabetes mellitus without complications; Z79.4 Long term (current) use of insulin; E78.00 Pure hypercholesterolemia, unspecified; E78.5 Hyperlipidemia, unspecified; J45.909 Unspecified asthma, uncomplicated; M19.90 Unspecified osteoarthritis, unspecified site; E66.9 Obesity, unspecified; F32.9 Major depressive disorder, single episode, unspecified
CPT/HCPCS: 87426; 87804; 99212; G0463